=== PATIENT | male | born 1970 | race Caucasian/White ===

== ENCOUNTER 2021-06-16 19:39 | Emergency (ER) | payer BC, SELFPAY ==
[2021-06-16 19:45] VITALS: BP 128/73; PULSE 84; RESP 18; TEMP 36.9; O2SAT 95; BMI 30.7
[2021-06-16 20:28] VITALS: BP 141/74; PULSE 72; RESP 18; TEMP 36.9; O2SAT 95
--- NOTE | 2021-06-16 20:30 | CTR_ITS ---
PROCEDURE INFORMATION: Exam: CT Cervical Spine Without Contrast Exam date and time: 06/16/2021 8:30 PM Age: 50 years old Clinical indication: Injury or trauma; Other: Blunt trauma; Patient HX: Patient struck on top of head by a moderate sized tree limb from approximately 5 to six feet high. Lac near vertex. C/O head and neck pain. ; Additional info: Struck in head by tree TECHNIQUE: Imaging protocol: Computed tomography images of the cervical spine without contrast. Radiation optimization: All CT scans at this facility use at least one of these dose optimization techniques: automated exposure control; mA and/or kV adjustment per patient size (includes targeted exams where dose is matched to clinical indication); or iterative reconstruction. COMPARISON: CT head wo con* [id number] 06/16/2021 8:38 PM RADIATION DOSE METRICS: Total DLP (mGy-cm): 705.66 FINDINGS: Vertebrae: There are mild degenerative changes present. Normal alignment. No acute fractures. Soft tissues: Unremarkable. Lungs: Lung apices are normal. CT/CT cervical spin wo con* [id number] IMPRESSION: No acute injury. Radiation Dose CTDIVOL = (mGy): DLP = 705.66 (mGy-cm)
--- NOTE | 2021-06-16 20:30 | CTR_ITS ---
PROCEDURE INFORMATION: Exam: CT Head Without Contrast Exam date and time: 06/16/2021 8:30 PM Age: 50 years old Clinical indication: Injury or trauma; Blunt trauma (contusions or hematomas); Patient HX: Patient struck on top of head by a moderate sized tree limb from approximately 5 to six feet high. Lac near vertex. C/O head and neck pain. ; Additional info: Struck in head by tree TECHNIQUE: Imaging protocol: Computed tomography of the head without contrast. Radiation optimization: All CT scans at this facility use at least one of these dose optimization techniques: automated exposure control; mA and/or kV adjustment per patient size (includes targeted exams where dose is matched to clinical indication); or iterative reconstruction. COMPARISON: CT head wo con* [id number] 08/28/2019 9:16 AM RADIATION DOSE METRICS: Total DLP (mGy-cm): 898.12 FINDINGS: Brain: Normal. No hemorrhage. Unremarkable white matter. No mass effect. Cerebral ventricles: No ventriculomegaly. Paranasal sinuses: Mucosal thickening in the ethmoid sinuses. Mastoid air cells: Visualized mastoid air cells are well aerated. Bones/joints: Unremarkable. No acute fracture. Soft tissues: There is an apical scalp laceration. CT/CT head wo con* [id number] IMPRESSION: No acute intracranial injury. Radiation Dose CTDIVOL = (mGy): DLP = 898.12 (mGy-cm)
--- NOTE | 2021-06-16 21:33 | ED_ITS ---
HPI - Head Injury General: Chief complaint: Head Injury Stated complaint: Injury\Head Time Seen by Provider: 06/16/21 20:10 History of Present Illness: HPI Narrative: 50-year-old male who presents after a large tree branch fell from a height and landed on top of his head. He had some scalp bleeding. He did not get knocked out. He has a mild headache. No vision changes. No weakness or trouble with speech. MD Complaint: head injury Onset (ago): hour(s) Mechanism of Injury: other Place: home Loss of Consciousness: no Location of injury: other Severity: moderate Quality: burning and sharp Radiation: none Other Injuries: none Associated symptoms: Deny confusion, nausea, syncope or vomiting Review of Systems Const: Denies: fever(s) Eyes: Denies: change in vision ENMT: Denies: throat pain or hoarseness Card: Denies: chest pain, palpitations, irregular heart rhythm, syncope or pre-syncope Resp: Denies: dyspnea or non-productive cough GI: Denies: abdominal pain, nausea or vomiting Neuro: Reports: headache(s); Denies: numbness in extremities, weakness in extremities or confusion Physical Exam Const: COMMON NORMALS: no acute distress, patient oriented x3 and alert GENERAL APPEARANCE: cooperative HENMT: COMMON NORMALS: external ears normal and Normal external nose present HEAD & SCALP: scalp lesion (Abrasion to crown. Minimal swelling. No bleeding.) FACE & SINUS: normal facial exam NOSE: Normal external nose present EXTERNAL EAR: Yes external ears normal MOUTH: Normal oral and palatal mucosa present and tongue normal Neck/C-Spine: GENERAL: Yes trachea midline and No tender Chest: COMMONS NORMALS: normal inspection of the chest CHEST: No tenderness Resp: COMMON NORMALS: normal respiratory effort and No use of accessory muscles Cardio: COMMON NORMALS: regular rate and regular rhythm RATE: regular rate RHYTHM: regular rhythm GI: COMMON NORMALS: Normal to inspection, nondistended, normoactive bowel sounds present : COMMON NORMALS: Yes no CVA tenderness BLADDER/KIDNEY EXAM: Yes no CVA tenderness Back/Pelvis: COMMON NORMALS: no CVA tenderness, thoracic and lumbar spine normal to inspection and no thoracic nor lumbar tenderness Neuro: COMMON NORMALS: patient oriented x3 SENSORIUM/ORIENTATION: Yes alert Course Vital Signs: Vital signs: Vital Signs Temperature 98.4 F 06/16/21 21:43 Pulse Rate 72 09/24/21 21:43 Respiratory Rate 18 06/16/21 21:43 Blood Pressure 141/74 06/16/21 21:43 Pulse Oximetry 95 06/16/21 21:43 MDM - Head Injury MDM Narrative: Medical decision making narrative: Head and C-spine CTs are negative Discharge Plan Discharge Patient Disposition: Home Clinical Impression: Contusion of scalp Qualifiers: Encounter type: initial encounter Qualified Code(s): S00.03XA - Contusion of scalp, initial encounter Abrasion of scalp Qualifiers: Encounter type: initial encounter Qualified Code(s): S00.01XA - Abrasion of scalp, initial encounter Condition: Stable Prescriptions: No Action No Known Home Medications RF: 0 Discharge Orders: Discharge ED (Routine); Ordered 06/16/21 Ordered By: Jesse Rosa Discharge Diet: Usual diet Discharge Activity: Limit activity as instructed Patient Instructions: Abrasion (ED), Scalp Contusion in Adults (ED) Activity Restrictions/Additional Instructions: You may wash with soap and running water. Do not scrub. Return for mental status changes, worsening headache, vision changes, weakness, trouble with speech, any other concerning symptoms Stand Alone Forms: Work/School Release Coding Level of Care Code ED Composition Stone Applicator for Anmol Fwd Exam Expanded Problem Focused
[2021-06-16 21:43] VITALS: BP 141/74; PULSE 72; RESP 18; TEMP 36.9; O2SAT 95
== END 2021-06-16 21:42 | disposition home or self-care (01) ==
PROVIDERS: Emergency Provider Emergency Medicine
DX: S00.03XA Contusion of scalp, initial encounter (principal); S00.01XA Abrasion of scalp, initial encounter; W20.8XXA Other cause of strike by thrown, projected or falling object, initial encounter
CPT/HCPCS: 70450; 72125; 99282

== ENCOUNTER 2022-01-17 14:04 | Emergency (ER) | payer BC, SELFPAY ==
[2022-01-17] VITALS (21 sets, daily range): BP systolic 110–144; BP diastolic 69–91; PULSE 54–77; RESP 13–24; TEMP 36.7; O2SAT 91–97
--- NOTE | 2022-01-17 14:07 | XR_ITS ---
WS: [id number] Portable AP upright chest, 01/17/2022 Clinical Data: chest pain Comparison: None. Findings: No nodules, masses or effusions are seen. The heart is normal. The pulmonary vascularity is not increased. No pneumonia or pneumothorax is seen. XR/XR chest 1V portable [id number] Impression: Negative chest.
--- NOTE | 2022-01-17 14:08 | ECG_ITS ---
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 Measurements Intervals [place] Rate: 64 P: 40 NV: 224 QRS: 16 QRSD: 125 T: 39 QT: 365 QTc: 377 Interpretive Statements SINUS RHYTHM WITH FIRST DEGREE AV BLOCK POSSIBLE RIGHT VENTRICULAR CONDUCTION DELAY [RSR (QR) IN V1/V2] Consider TYPE 3 BRUGADA PATTERN (NON-DIAGNOSTIC) [COVED/SADDLEBACK ST ELEVATION > 0.1mV IN 2 OF V1-3] No previous ECG available for comparison Electronically Signed On 01-17-2022 16:56:40 CDT by Kit Alamo M.D. [id number]
[2022-01-17 14:43] LABS: Basophils % 0.4 %; Eosinophils # 0.1 10^3/uL (0.0-0.8); Eosinophils % 0.8 %; Hematocrit 46.2 % (42.0-52.0); Hemoglobin 15.9 g/dL (11.7-16.6); Lymphocytes # 1.3 10^3/uL (0.8-4.8); Lymphocytes % 13.2 %; Mean Corpuscular HGB Conc 34.4 g/dL (30.0-36.0); Mean Corpuscular Hemoglobin 31.4 pg (28.0-34.0); Mean Corpuscular Volume 91.3 fl (80-94); Mean Platelet Volume 9.2 fL (7.4-10.4); Monocytes # 0.9 10^3/uL (0.2-0.9); Monocytes % 9.2 %; Neutrophils # 7.68 10^3/uL (1.8-7.7); Neutrophils % 75.9 %; Nucleated Red Blood Cells % 0 %; Platelet Count 390 10^3/cmm (130-400); Red Blood Count 5.06 10^6/uL (4.1-5.3); Red Cell Distribution Width 13.1 % (12.1-15.1); White Blood Count 10.1 10^3/uL (4.0-10.0)
[2022-01-17 15:09] LABS: Blood Urea Nitrogen 9 mg/dL (6-20); Calcium 8.9 mg/dL (8.5-10.5); Carbon Dioxide 24 mmol/L (22-29); Chloride 102 mmol/L (98-107); Glucose 190 mg/dL (65-115); Osmolality Calculated 288 mOsm/kg (285-295); Sodium 137 mmol/L (136-145)
[2022-01-17 15:10] LABS: Troponin(5th) Baseline 6 ng/L (0-15)
[2022-01-17 15:15] LABS: Anion Gap 15.4 (5-19); Potassium 4.4 mmol/L (3.5-5.1)
--- NOTE | 2022-01-17 15:24 | US_ITS ---
WS: [id number] RIGHT UPPER QUADRANT ULTRASOUND HISTORY: RIGHT upper quadrant pain. Evaluate pathology. COMPARISON: 12/31/2009 Liver: 15.8 cm in length. Normal size liver. Moderate coarse echotexture. Surface of the liver is sli ghtly irregular. Central bile duct dilatation. Portal Vein: Normal hepatopetal flow with monophasic waveform. Gallbladder: Mild gallbladder hydrops with diffuse wall thickening. Wall measures up to 7 mm. There i s a small amount of sludge in the gallbladder. No cholelithiasis. Cannot exclude stones in the gallbl adder neck. There is very mild central bile duct dilatation. CBD: 0.7 cm Pancreas: Completely obscured by bowel gas and body habitus. Right kidney: 10.1 cm in length. Normal size and echogenicity. No hydronephrosis or mass. Aorta and IVC: Unremarkable abdominal aorta and IVC. No ascites. US/US gall bladder [id number] IMPRESSION: 1. Gallbladder hydrops with sludge. No stones identified. There may be a stone in the gallbladder neck as this area is not well visualized. There is diffuse wall thickening but no edema. Gallbladder findings may be related to hepatocell ular disease and not acute cholecystitis. Both remain in the differential at th is time. 2. Central bile duct dilatation. Recommend further evaluation of the common bi le duct. CT abdomen and pelvis with IV contrast. MRCP may also be necessary to evaluate the duct for distal stone. 3. Pancreas is not well visualized. Pancreatic head mass should be excluded by CT.
--- NOTE | 2022-01-17 15:26 | ED_ITS ---
HPI - General Adult General: Chief complaint: Abdominal Pain Stated complaint: Pain moving around from back to chest Time Seen by Provider: 01/17/22 14:20 History of Present Illness: Patient is a 51-year-old male with history of biliary colic presenting to the emergency room for evaluation of significant right upper quadrant pain for last 3 weeks. Patient tells me that he has had c hronic gallbladder problem for the last 12 years and acutely worsened in the last 3 weeks. Patient tells me that for last 3 weeks he has has had decreased p.o. intake with significant pain from the right upper quadrant into the chest and abdomen. Patient denies any fever or chills, urinary symptoms, renal colic, hematuria, or complaints. Denies any diarrhea melena hematochezia, prior abdominal surgery. She has no chest pain, shortness of breath, palpitation, cough, runny nose, sore throat. Onset:3 weeks ago Duration:3 weeks Location:home Severity:moderate Associated symptoms: Deny chest pain, dyspnea, nausea, rash, palpitations or vomiting Review of Systems Const: Denies: fever(s) or chills Eyes: Denies: change in vision ENMT: Denies: mouth pain Card: Denies: chest pain or palpitations Resp: Denies: dyspnea or non-productive cough GI: Reports: abdominal pain; Denies: nausea, vomiting or diarrhea : Denies: dysuria Musc: Denies: extremity pain Skin/Breast: Denies: rash or new lesions Neuro: Denies: weakness in extremities Psych: Reports: other (Normal mood) Jair/Lymph: Denies: easy bruising PFS ED PFSH: Medical History (Updated 01/17/22 @ 15:29 by Florian Galan MD) Biliary colic Social History (Updated 01/17/22 @ 15:29 by Florian Galan MD) Smoking and tobacco status: never smoked Alcohol intake: never Substance/Drug Use: never Physical Exam Const: COMMON NORMALS: alert HENMT: COMMON NORMALS: atraumatic HEAD & SCALP: atraumatic MOUTH: moist mucous membranes not abnormal Eye: COMMON NORMALS: EOMs intact bilaterally and conjunctivae normal CONJUNCTIVA: Yes conjunctivae normal Neck/C-Spine: COMMON NORMALS: full ROM and supple Resp: COMMON NORMALS: normal respiratory effort and clear to auscultation bilaterally AUSCULTATION: clear to auscultation bilaterally Cardio: COMMON NORMALS: regular rate RATE: regular rate GI: COMMON NORMALS: Soft to palpation PALPATION: Yes Soft to palpation OTHER: + Moderate right upper quadrant tenderness palpation. NO guarding rebound, guarding, rigidity. No CVA tenderness to percussion. +Caban/Neg McBurney's poin t tenderness, no suprabupic tenderness to palpation. Extremity: COMMON NORMALS: full ROM Neuro: SENSORIUM/ORIENTATION: Yes alert MOTOR EXAM: No Abnormal motor strength present and Other motor observations present (no focal motor deficits) Psych: COMMON NORMALS: speech normal SPEECH: Yes normal speech MOOD & AFFECT: Yes euthymic mood Course Vital Signs: Vital signs: Vital Signs Temperature 98.1 F 01/17/22 14:11 Pulse Rate 63 01/17/22 21:30 Respiratory Rate 22 H 01/17/22 21:30 Blood Pressure 125/72 01/17/22 21:30 Pulse Oximetry 93 01/17/22 21:30 MDM - General Adult Medical Decision Making 51-year-old male presenting to emergency room with complaints of right upper quadrant abdominal pain x3 weeks now worsening. On exam, patient has positive Caban sign. She is afebrile. No guarding or rebound tenderness. White count of 10.1. Ultrasound showed bladder wall thickening and CBD dilatation. CT of the pelvis showed CBD of 11 mm. AST/ALT/T bili appears to be elevated. No CBD observed. However, CT scan and ultrasound cannot rule possibly acute cholecystitis. Given the fact that we do not have a general surgeon in our hospital in case this is acute cholecystitis, decision was made to transfer patient for further evaluation. Case was discussed with Dr. Gómez who agreed with the transfer to [facility] for further evaluation of symptoms and possible GI/general surgery intervention. Disposition: Transfer to outside hospital Lab Data : 01/17/22 14:37 01/17/22 19:01 Radiology Impressions Chest X-Ray 01/17/22 14:07 Impression: Negative chest. Gallbladder Ultrasound 01/17/22 15:24 IMPRESSION: 1. Gallbladder hydrops with sludge. No stones identified. There may be a stone in the gallbladder neck as this area is not well visualized. There is diffuse wa ll thickening but no edema. Gallbladder findings may be related to hepatocellular disease and not acute cholecystitis. Both remain in the differential at this time. 2. Central bile duct dilatation. Recommend further evaluation of the common bile duct. CT abdomen and pelvis with IV contrast. MRCP may also be necessary to evaluate the duct for distal stone. 3. Pancreas is not well visualized. Pancreatic head mass should be excluded by CT. Abdomen/Pelvis CT 01/17/22 16:33 IMPRESSION: Common bile duct dilated to 11 mm along with intrahepatic biliary dilation, negative for obstructive lesion seen by CT, MRCP could further evaluate this. Gallbladder also demonstrates some wall thickening, please correlate for possible cholecystitis. Laboratory Results WBC 10.1 10^3/uL (4.0-10.0) H 01/17/22 14:37 RBC 5.06 10^6/uL (4.1-5.3) 01/17/22 14:37 Hgb 15.9 g/dL (11.7-16.6) 01/17/22 14:37 Hct 46.2 % (42.0-52.0) 01/17/22 14:37 MCV 91.3 fl (80-94) 01/17/22 14:37 MCH 31.4 pg (28.0-34.0) 01/17/22 14:37 MCHC 34.4 g/dL (30.0-36.0) 01/17/22 14:37 RDW 13.1 % (12.1-15.1) 01/17/22 14:37 Plt Count 390 10^3/cmm (130-400) 01/17/22 14:37 MPV 9.2 fL (7.4-10.4) 01/17/22 14:37 Neut % (Auto) 75.9 % 01/17/22 14:37 Lymph % (Auto) 13.2 % 01/17/22 14:37 [place] % (Auto) 9.2 % 01/17/22 14:37 Eos % (Auto) 0.8 % 01/17/22 14:37 Baso % (Auto) 0.4 % 01/17/22 14:37 Neut # (Auto) 7.68 10^3/uL (1.8-7.7) 01/17/22 14:37 Lymph # (Auto) 1.3 10^3/uL (0.8-4.8) 01/17/22 14:37 [place]estone # (Auto) 0.9 10^3/uL (0.2-0.9) 01/17/22 14:37 Eos # (Auto) 0.1 10^3/uL (0.0-0.8) 01/17/22 14:37 Baso # (Auto) 0.0 10^3/uL (0.0-0.1) 01/17/22 14:37 Nucleated RBC % (auto) 0 % 01/17/22 14:37 Nucleated RBCs # 0.0 /100WBC 01/17/22 14:37 Sodium 138 mmol/L (136-145) 01/17/22 19:01 Potassium 4.6 mmol/L (3.5-5.1) 01/17/22 19:01 Chloride 103 mmol/L (98-107) 01/17/22 19:01 Carbon Dioxide 26 mmol/L (22-29) 01/17/22 19:01 Anion Gap 13.6 (5-19) 01/17/22 19:01 BUN 8 mg/dL (6-20) 01/17/22 19:01 Creatinine 0.9 mg/dL (0.7-1.2) 01/17/22 19:01 GFR Calculation 89.0 mL/min (90-130) L 01/17/22 19:01 Glucose 110 mg/dL (65-115) 01/17/22 19:01 Calculated Osmolality 285 mOsm/kg (285-295) 01/17/22 19:01 Calcium 9.2 mg/dL (8.5-10.5) 01/17/22 19:01 Total Bilirubin 2.7 mg/dL (0.15-1.2) H 01/17/22 19:01 Direct Bilirubin 2.40 mg/dL (0.00-0.30) H 01/17/22 19:01 Indirect Bilirubin 0.30 01/17/22 19:01 AST 571 U/L (0-40) H 01/17/22 19:01 ALT 619 U/L (0-41) H 01/17/22 19:01 Alkaline Phosphatase 298 IU/L (40-130) H 01/17/22 19:01 Troponin T Baseline 6 ng/L (0-15) 01/17/22 14:37 Total Protein 7.6 g/dL (6.6-8.7) 01/17/22 19:01 Albumin 3.8 g/dL (3.5-5.2) 01/17/22 19:01 Globulin 3.8 g/dL (1.3-4.6) 01/17/22 19:01 Urine Color Yellow (Yellow) 01/17/22 19:32 Urine Appearance Clear (CLEAR) 01/17/22 19:32 Urine pH 7 (5-7) 01/17/22 19:32 Ur Specific Green 1.010 (1.005-1.030) 01/17/22 19:32 Urine Protein Neg (Negative) 01/17/22 19:32 Urine Glucose (UA) Norm (Normal) 01/17/22 19:32 Urine Ketones Negative (Negative) 01/17/22 19:32 Urine Blood Neg (Negative) 01/17/22 19:32 Urine Nitrate Negative (Negative) 01/17/22 19:32 Urine Bilirubin 1+ (Negative) H 01/17/22 19:32 Urine Urobilinogen Neg mg/dL (Negative) 01/17/22 19:32 Ur Leukocyte Esterase Negative (Negative) 01/17/22 19:32 Imaging Data Other Imaging: Radiologist's impression: [place] [address] CT Scan Report Signed Patient: Edson Jurado Unit #: [id number] : 1970 Age/Sex: 51 / M ADM Date: 01/17/22 Loc: ER Room/Bed: Attending Dr: Ordering Provider/Ordering MD: Florian Galan MD Date of Service: 01/17/22 Procedure(s): CT abdomen pelvis w con* [id number] Accession Number(s): [id number] Report Number: [id number] PROCEDURE INFORMATION: Exam: CT Abdomen And Pelvis With Contrast Exam date and time: 01/17/2022 5:47 PM Age: 51 years old Clinical indication: Abdominal pain; Additional info: Cbd dilitation TECHNIQUE: Imaging protocol: Computed tomography of the abdomen and pelvis with contrast. Radiation optimization: All CT scans at this facility use at least one of these dose optimization techniques: automated exposure control; mA and/or kV adjustment per patient size (includes targeted exams where dose is matched to clinical indication); or iterative reconstruction. Contrast material: OMNIPAQUE 350; Contrast volume: 95 ml; Contrast route: INTRAVENOUS (IV);? COMPARISON: US gall bladder [id number] 01/17/2022 3:54 PM RADIATION DOSE METRICS: Total DLP (mGy-cm): 1796.37 FINDINGS: Lungs: Left lower lobe calcified granuloma. Liver: Normal. No mass. Gallbladder and bile ducts: Common bile duct dilated to 11 mm along with intrahepatic biliary dilation, negative for obstructive lesion seen by CT, MRCP could further evaluate this.? Gallbladder also demonstrates some wall thickening, please correlate for possible cholecystitis. Pancreas: Normal. No ductal dilation. Spleen: Normal. No splenomegaly. Adrenal glands: Normal. No mass. Kidneys and ureters: Normal. No hydronephrosis. Stomach and bowel: Unremarkable. No obstruction. No mucosal thickening. Appendix: No evidence of appendicitis. Intraperitoneal space: Unremarkable. No free air. No significant fluid collection. Arteries: Unremarkable. No abdominal aortic aneurysm. Lymph nodes: Unremarkable. No enlarged lymph nodes. Urinary bladder: Unremarkable as visualized. Reproductive: Unremarkable as visualized. Bones/joints: Unremarkable. No acute fracture. Soft tissues: Unremarkable. CT/CT abdomen pelvis w con* [id number] IMPRESSION: Common bile duct dilated to 11 mm along with intrahepatic biliary dilation, negative for obstructive lesion seen by CT, MRCP could further evaluate this. Gallbladder also demonstrates some wall thickening, please correlate for possible cholecystitis. ? Dictated By: Andrew Hurt MD Signed By: Andrew Hurt MD Signed Date/Time: 01/17/22 180 DD/ [address] [address] Ultrasound Report Signed Patient: Edson Jurado Unit #: [id number] : 1970 Age/Sex: 51 / M ADM Date: 01/17/22 Loc: ER Room/Bed: Attending Dr: Ordering Provider/Ordering MD: Florian Galan MD Date of Service: 01/17/22 Procedure(s): US gall bladder [id number] Accession Number(s): [id number] Report Number: [id number] WS: [id number] RIGHT UPPER QUADRANT ULTRASOUND HISTORY: RIGHT upper quadrant pain. Evaluate pathology. COMPARISON: 12/31/2009 Liver: 15.8 cm in length. Normal size liver. Moderate coarse echotexture. Surface of the liver is slightly irregular. Central bile duct dilatation. Portal Vein: Normal hepatopetal flow with monophasic waveform. Gallbladder: Mild gallbladder hydrops with diffuse wall thickening. Wall measures up to 7 mm. There is a small amount of sludge in the gallbladder. No cholelithiasis. Cannot exclude stones in the gallbladder neck. There is very mild central bile duct dilatation. CBD: 0.7 cm Pancreas: Completely obscured by bowel gas and body habitus. Right kidney: 10.1 cm in length. Normal size and echogenicity. No hydronephrosis or mass. Aorta and IVC: Unremarkable abdominal aorta and IVC. No ascites. US/US gall bladder [id number] IMPRESSION: ? 1.? Gallbladder hydrops with sludge. No stones identified. There may be a stone in the gallbladder neck as this area is not well visualized. There is diffuse wall thickening but no edema. Gallbladder findings may be related to hepatocellular disease and not acute cholecystitis. Both remain in the differential at this time. 2.? Central bile duct dilatation. Recommend further evaluation of the common bile duct. CT abdomen and pelvis with IV contrast. MRCP may also be necessary to evaluate the duct for distal stone. 3.? Pancreas is not well visualized. Pancreatic head mass should be excluded by CT. ? Dictated By: Cleo Gandhi DO Signed By: Cleo Gandhi DO Signed Date/Time: 01/17/22 1620 DD/ 1615 Discharge Plan Discharge Condition: Stable Prescriptions: No Action No Known Home Medications 0RF Coding Level of Care Code ED Combine Driver for Chg Fwd Exam Comprehensive
[2022-01-17] MEDS: morphine 4 mg/mL SDV 1 mL IVP ×2 (15:33→19:56)
[2022-01-17] MEDS: sodium chloride 0.9% 1,000 ML 999 ML IV (15:33)
[2022-01-17] MEDS: ondansetron 2 mg/ML SDV 2 mL 4 MG IVP (15:34)
[2022-01-17] MEDS: famotidine 20 mg/2 mL INJ IVP (15:34)
--- NOTE | 2022-01-17 16:08 | ECG_ITS ---
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 Measurements Intervals [place] Rate: 58 P: 36 KS: 235 QRS: 12 QRSD: 124 T: 35 QT: 380 QTc: 375 Interpretive Statements SINUS BRADYCARDIA WITH FIRST DEGREE AV BLOCK POSSIBLE RIGHT VENTRICULAR CONDUCTION DELAY [RSR (QR) IN V1/V2] Compared to ECG 01/17/2022 14:29:31 Sinus rhythm no longer present ST (T wave) deviation no longer present Electronically Signed On 01-17-2022 17:06:16 CDT by Kit Alamo M.D. [id number]
--- NOTE | 2022-01-17 16:33 | CTR_ITS ---
PROCEDURE INFORMATION: Exam: CT Abdomen And Pelvis With Contrast Exam date and time: 01/17/2022 5:47 PM Age: 51 years old Clinical indication: Abdominal pain; Additional info: Cbd dilitation TECHNIQUE: Imaging protocol: Computed tomography of the abdomen and pelvis with contrast. Radiation optimization: All CT scans at this facility use at least one of these dose optimization techniques: automated exposure control; mA and/or kV adjustment per patient size (includes targeted exams where dose is matched to clinical indication); or iterative reconstruction. Contrast material: OMNIPAQUE 350; Contrast volume: 95 ml; Contrast route: INTRAVENOUS (IV); COMPARISON: US gall bladder [id number] 01/17/2022 3:54 PM RADIATION DOSE METRICS: Total DLP (mGy-cm): 1796.37 FINDINGS: Lungs: Left lower lobe calcified granuloma. Liver: Normal. No mass. Gallbladder and bile ducts: Common bile duct dilated to 11 mm along with intrahepatic biliary dilation, negative for obstructive lesion seen by CT, MRCP could further evaluate this. Gallbladder also demonstrates some wall thickening, please correlate for possible cholecystitis. Pancreas: Normal. No ductal dilation. Spleen: Normal. No splenomegaly. Adrenal glands: Normal. No mass. Kidneys and ureters: Normal. No hydronephrosis. Stomach and bowel: Unremarkable. No obstruction. No mucosal thickening. Appendix: No evidence of appendicitis. Intraperitoneal space: Unremarkable. No free air. No significant fluid collection. Arteries: Unremarkable. No abdominal aortic aneurysm. Lymph nodes: Unremarkable. No enlarged lymph nodes. Urinary bladder: Unremarkable as visualized. Reproductive: Unremarkable as visualized. Bones/joints: Unremarkable. No acute fracture. Soft tissues: Unremarkable. CT/CT abdomen pelvis w con* [id number] IMPRESSION: Common bile duct dilated to 11 mm along with intrahepatic biliary dilation, negative for obstructive lesion seen by CT, MRCP could further evaluate this. Gallbladder also demonstrates some wall thickening, please correlate for possible cholecystitis.
[2022-01-17] MEDS: iohexol 350 mg/mL 100 mL Btl IV (17:48)
--- NOTE | 2022-01-17 19:13 | PC.NURSE ---
190 Assumed pt care from Lan AYALA
[2022-01-17 19:28] LABS: Alanine Aminotransferase 619 U/L (0-41); Albumin Level 3.8 g/dL (3.5-5.2); Alkaline Phosphatase 298 IU/L (40-130); Anion Gap 13.6 (5-19); Aspartate Amino Transferase 571 U/L (0-40); Blood Urea Nitrogen 8 mg/dL (6-20); Calcium 9.2 mg/dL (8.5-10.5); Carbon Dioxide 26 mmol/L (22-29); Chloride 103 mmol/L (98-107); Globulin 3.8 g/dL (1.3-4.6); Glucose 110 mg/dL (65-115); Osmolality Calculated 285 mOsm/kg (285-295); Potassium 4.6 mmol/L (3.5-5.1); Sodium 138 mmol/L (136-145); Total Bilirubin 2.7 mg/dL (0.15-1.2); Total Protein 7.6 g/dL (6.6-8.7)
[2022-01-17 19:40] LABS: Add Urine Microscopic? NO; Charge for UA Resulting for Rev
[2022-01-17 19:44] LABS: Bilirubin Urine 1+ (Negative); Blood Urine Neg (Negative); Glucose Urine UA Norm (Normal); Ketones Urine Negative (Negative); Leukocyte Esterase Urine Negative (Negative); Nitrate Urine Negative (Negative); Protein Urine Neg (Negative); Urine Appearance Clear (CLEAR); Urine Color Yellow (Yellow); Urobilinogen Urine Neg (Negative); pH Urine 7 (5-7)
--- NOTE | 2022-01-17 20:08 | ECG_ITS ---
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 Measurements Intervals [place] Rate: 70 P: 42 NC: 208 QRS: 42 QRSD: 105 T: 53 QT: 369 QTc: 399 Interpretive Statements SINUS RHYTHM INCOMPLETE RIGHT BUNDLE BRANCH BLOCK [90+ ms QRS DURATION, TERMINAL R IN V1/V2, 40+ ms S IN I/aVL/V4/V5/V6] TYPE 3 BRUGADA PATTERN (NON-DIAGNOSTIC) [COVED/SADDLEBACK ST ELEVATION > 0.1mV IN 2 OF V1-3] Compared to ECG 01/17/2022 16:18:37 Incomplete right bundle-branch block now present ST (T wave) deviation now present Sinus bradycardia no longer present First degree AV block no longer present Electronically Signed On 01-18-2022 17:02:48 CDT by Dusty Fuentes M.D. [id number]
[2022-01-17] MEDS: fentaNYL 50 mcg/mL INJ 2mL IVP (23:44)
[2022-01-18 00:18] VITALS: BP 124/73; PULSE 65; RESP 20; O2SAT 93
[2022-01-18 00:48] VITALS: BP 119/68; PULSE 68; RESP 21; O2SAT 93
[2022-01-18 01:18] VITALS: BP 130/73; PULSE 69; RESP 24; O2SAT 93
[2022-01-18 02:20] VITALS: BP 129/81; PULSE 68; RESP 18; O2SAT 93
== END 2022-01-18 01:48 ==
PROVIDERS: Emergency Provider Emergency Medicine
DX: K83.8 Other specified diseases of biliary tract (principal); K82.9 Disease of gallbladder, unspecified
CPT/HCPCS: 71045; 74177; 76705; 80048; 80053; 81003; 82247; 82248; 84484; 85025; 93005; 96361; 96374; 96375; 96376; 99285; J2270; J2405; J3010; J3490; J7030; Q9967

== ENCOUNTER 2022-12-02 00:30 | Emergency (ER) | payer BC, SELFPAY ==
--- NOTE | 2022-12-02 00:32 | XRR_ITS ---
PROCEDURE INFORMATION: Exam: XR Chest Exam date and time: 12/02/2022 1:34 AM Age: 52 years old Clinical indication: Cough; Additional info: Cough, body aches TECHNIQUE: Imaging protocol: Radiologic exam of the chest. Views: 1 view. COMPARISON: CR XR chest 1V portable [id number] 01/17/2022 2:23 PM FINDINGS: Lungs: Normal lung volumes. No interstitial or airspace opacities. Pleural spaces: No pleural effusion. No pneumothorax. Heart/Mediastinum: Normal heart size. Normal mediastinal contour. Midline trachea. Bones/joints: No acute abnormalities. XR/XR chest 1V portable [id number] IMPRESSION: No chest radiographic evidence of acute cardiopulmonary disease.
[2022-12-02 00:40] VITALS: BP 142/88; PULSE 64; RESP 16; TEMP 36.7; O2SAT 96; BMI 29.6
--- NOTE | 2022-12-02 01:01 | ED_ITS ---
HPI - URI/Sore Throat General: Chief Complaint: Abdominal Pain Stated Complaint: cough,chills, flu like symtoms Time Seen by Provider: 12/02/22 00:33 Source: patient Mode of arrival: ambulatory Limitations: no limitations History of Present Illness: Patient is a 52-year-old male who presents to the ED today with a complaint of cough over the past 3 weeks. Patient states he is coughing up green phlegm. He denies chest pain, shortness of breath, difficulty breathing. No hemoptysis. Patient is an everyday smoker. He states he is coughing so much that he now has pain to his left groin region. Patient states he does not have pain to the groin unless he coughs. He is stooling and passing flatulence normally. MD elicited complaint: cough Onset (ago): week(s) Severity: moderate Description of mucous: green Exacerbating factors: other (coughing) Relieving factors: nothing Associated symptoms: Deny abdominal pain, chills, chest pain, diarrhea, fever(s), headache(s), nasal congestion, nausea or vomiting Treatments prior to arrival: none Review of Systems Const: Denies: fever(s), chills, body aches, fatigue or malaise ENMT: Denies: throat pain, odynophagia, nasal discharge or nasal congestion Card: Denies: chest pain, palpitations, irregular heart rhythm, edema, swelling of feet/ankles, lightheadedness, syncope or pre-syncope Resp: Reports: productive cough, change in phlegm color and chest congestion; Denies: dyspnea, wheezing or hemoptysis GI: Denies: abdominal pain, nausea, vomiting or diarrhea Musc: Denies: neck pain, back pain, extremity pain or joint pain Skin/Breast: Denies: rash Neuro: Denies: headache(s) or dizziness PFS ED PFSH: Surgical History History of cholecystectomy Social History Smoking and tobacco status: former smoker Alcohol intake: never Physical Exam Const: COMMON NORMALS: no acute distress, average body habitus, patient orie nted x3, no limitations, healthy appearing, alert and well nourished GENERAL APPEARANCE: cooperative ORIENTATION/CONSCIOUSNESS: Yes awake, Yes oriented to person, Yes oriented to place and Yes oriented to time HENMT: COMMON NORMALS: normocephalic and atraumatic HEAD & SCALP: normal to inspection, normocephalic and atraumatic FACE & SINUS: normal facial exam Eye: SCLERA: sclerae normal Neck/C-Spine: COMMON NORMALS: full ROM, no lymphadenopathy and no meningeal signs Resp: COMMON NORMALS: normal respiratory effort and clear to auscultation bilaterally AUSCULTATION: clear to auscultation bilaterally Cardio: COMMON NORMALS: regular rate and regular rhythm RATE: regular rate RHYTHM: regular rhythm GI: COMMON NORMALS: Normal to inspection, nondistended, normoactive bowel sounds present, Soft to palpation, non-tender, No hepatosplenomegaly present and no masses INSPECTION: Yes normal to inspection and Yes other (L inguinal hernia appreciated during cough only) AUSCULTATION: Yes normoactive bowel sounds PALPATION: Yes Soft to palpation, Yes Tenderness to palpation present (GI), No Guarding due to palpation present (GI), No Rigid due to palpation and Yes No hepatosplenomegaly present OTHER: no incarceration/strangulation to hernia noted Extremity: COMMON NORMALS: normal to inspection GENERAL: Yes normal exam except as noted Neuro: CORY COMA SCALE: document GCS findings [place] coma scale eye opening: Spontaneous Cory coma scale verbal response: Orientated [place] coma scale motor response: Obey commands [place] coma scale total score: 15 COMMON NORMALS: patient oriented x3, moves all extremities, no focal motor deficits and no sensory deficits noted SENSORIUM/ORIENTATION: Yes alert, Yes oriented to person, Yes oriented to place and Yes oriented to time MENINGEAL SIGNS: Yes no meningeal signs Skin: COMMON NORMALS: no rashes or lesions noted GENERAL SKIN EXAM: no rashes or lesions noted Course Vital Signs: Vital signs: Vital Signs Temperature 98.1 F 12/02/22 00:40 Pulse Rate 64 12/02/22 00:40 Respiratory Rate 16 12/02/22 00:40 Blood Pressure 142/88 12/02/22 00:40 Pulse Oximetry 96 12/02/22 00:40 Oxygen Delivery Me thod 12/02/22 00:40 MDM - URI/Sore Throat Medical Decision Making Patient here with cough for 3 weeks. Patient states he has been coughing so much that he now has left groin pain. On exam he has a left inguinal hernia that is not incarcerated or strangulated. 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 I will go ahead and place a case management referral for general surgery for evaluation and discussion for elective repair. I will place him on antibiotics, steroids, albuterol inhaler for the bronchitis. Recommend he follow-up with primary care if symptoms do not seem to improve over the next week or so. Strict return to ED precautions given. Discharge Plan Discharge Patient Disposition: Home Clinical Impression: Bronchitis, Left inguinal hernia Condition: Stable Prescriptions: New prednisone 10 mg tablet 60 mg PO DAILY 5 Days Qty: 30 0RF doxycycline monohydrate 100 mg capsule 100 mg PO Q12H 10 Days Qty: 20 0RF albuterol sulfate 90 mcg/actuation aerosol powdr breath activated 2 inh INHALATION Q4H PRN (Reason: shortness of breath or wheezing) Qty: 1 0RF No Action acetaminophen [Tylenol Extra Strength] 500 mg tablet 1,000 mg PO QID PRN ciprofloxacin HCl 500 mg tablet 500 mg PO Q12H omeprazole 20 mg capsule,delayed release(DR/EC) 20 mg PO DAILY 90 Days Qty: 90 0RF Discharge Orders: Discharge ED (Routine); Ordered 12/02/22 Ordered By: Lucia Lorenzana Referrals: Temitope Lemons MD [Primary Care Provider] - Patient Instructions: Acute Bronchitis (ED), Inguinal Hernia (ED) Activity Restrictions/Additional Instructions: As we discussed I will put you on medications for the bronchitis. I have placed a referral with case management so they can get you set up with general surgery for evaluation of your hernia. You need to return to the emergency department if hernia becomes severely painful and constant in nature, if you are unable to pass gas or have a bowel movement, fevers, repetitive episodes of vomiting, or any other concerns you may have. 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
--- NOTE | 2022-12-03 09:53 | DCPLANNER ---
Addendum entered by Khushboo Cruz 01/02/23 09:19: Patient had a follow up appointment scheduled with general surgery - patient did attend appointment Addendum entered by Khushboo Cruz 12/03/22 14:33: Patient has a follow up appointment scheduled for Sunday, January 01, 2023 at 9:[address] Aguilera at general surgery. Clinic will call patient with appointment information. Original Note: training manager had message to schedule a follow up appointment for patient with general surger. training manager sent patients information to the front office staff at general surgery. Patients information will be printed and reviewed. Clinic will call patient with appointment information.
== END 2022-12-02 03:28 | disposition home or self-care (01) ==
PROVIDERS: Emergency Provider Physician Assistant; PCP Family Medicine
DX: J40 Bronchitis, not specified as acute or chronic (principal); K40.90 Unilateral inguinal hernia, without obstruction or gangrene, not specified as recurrent; Z87.891 Personal history of nicotine dependence
CPT/HCPCS: 71045; 99283

== ENCOUNTER → 2022-12-13 11:43 | Outpatient (BNVA) | payer BC, SELFPAY | PROVIDERS: PCP Family Medicine; Visit Provider Family Medicine | DX: Z13.1 Encounter for screening for diabetes mellitus (principal); R63.4 Abnormal weight loss; Z13.220 Encounter for screening for lipoid disorders; Z13.6 Encounter for screening for cardiovascular disorders; Z12.5 Encounter for screening for malignant neoplasm of prostate; M72.2 Plantar fascial fibromatosis; Z12.11 Encounter for screening for malignant neoplasm of colon; K40.90 Unilateral inguinal hernia, without obstruction or gangrene, not specified as recurrent; Z80.0 Family history of malignant neoplasm of digestive organs; R03.0 Elevated blood-pressure reading, without diagnosis of hypertension; R74.8 Abnormal levels of other serum enzymes; D49.2 Neoplasm of unspecified behavior of bone, soft tissue, and skin | CPT/HCPCS: 80053; 80061; 84443; 85025; G0103 ==

== ENCOUNTER 2023-01-24 06:52 | Day surgery (SDC) | payer BC, SELFPAY ==
[2023-01-22 10:41] VITALS: BMI 30.7
[2023-01-24 07:09] VITALS: BP 114/70; PULSE 61; RESP 16; TEMP 36.2; O2SAT 96
[2023-01-24] MEDS: sodium chloride 0.9% 1,000 ML 30 ML IV (07:18)
--- NOTE | 2023-01-24 08:14 | ANES.PREANE2 ---
Pre-Anesthetic Assessment Height/Weight: Height 1.73 m Weight 91.626 kg Temp Pulse Resp BP Pulse Ox O2 Del Method 97.1 F L 61 16 114/70 96 Room Air 01/24/23 07:09 01/24/23 07:09 01/24/23 07:09 01/24/23 07:09 01/24/23 07:09 01/24/23 07:09 Operation Date: 01/24/23 08:45 Proposed Procedures p 94235 colon Z12.11,KK59.00,K92.1(Not Applicable) - Orlando Aguilera DO Familial anesthetic complications: None Was Beta Terry taken within 24 hours: N/A Was Clonidine taken within 24 hours: N/A Last intake: Intake Last Liquid Date 01/23/23 Last Liquid Time 23:00 Last Solid Date 01/22/23 Last Solid Time 23:39 Social Tobacco and No alcohol Airway Mallampati: Class II Dentition: other (no teeth) Hepatic hx elevated LFTs GI Gastroesophageal Reflux Disease Anesthetic Plan ASA status: 2 Anesthesia: MAC Risk of > 500 ml blood loss (7ml/kg in children): No Medications/Allergies Home Medications Medication Instructions Recorded Confirmed Last Taken Type acetaminophen 500 mg tablet 1,000 mg PO QID PRN Pain 01/25/22 01/24/23 01/22/23 History (Tylenol Extra Strength) albuterol sulfate 90 mcg/actuation 2 inh inhalation Q4H PRN shortness 12/02/22 01/24/23 2 Weeks Ago Rx breath activated powder inhaler of breath or wheezing #1 ea ~01/10/23 omega 2-its-gce-fish oil 1,000 mg 1 cap PO BID 01/15/23 01/22/23 01/22/23 History (120 mg-180 mg) capsule (Fish Oil) Allergies Allergy/AdvReac Type Severity Reaction Status Date / Time acetaminophen [From Vicodin] Allergy ADR-Headach Verified 01/22/23 10:37 e hydrocodone [From Vicodin] Allergy ADR-Headach Verified 01/22/23 10:37 e Current Medications Generic Name Dose Route Start Last Admin Trade Name Freq PRN Reason Stop Dose Admin Sodium Chloride 1,000 mls @ 30 mls/hr 01/24/23 07:00 01/24/23 07:18 Sodium Chloride 0.9% IV 01/25/23 06:59 30 mls/hr .Q24H BRITTANY Administration PFSH Anesthesia Surgical History History of cholecystectomy History of tonsillectomy and adenoidectomy Family History Mother Cancer Diabetes Heart disease Father Alzheimer disease Diabetes Cancer Social History Smoking and tobacco status: current every day smoker cigarettes Alcohol intake: never Substance/Drug Use: never Data Anesthesia Cardiac Studies: No Data to Display
--- NOTE | 2023-01-24 08:20 | W.PM.OPSUD ---
Surgery/Procedure H&P Update DATE OF PROCEDURE: January 24, 2023 DATE H&P PERFORMED: 01/01/23 H&P UPDATE INFORMATION: I have reviewed H&P completed within last 30 days, I have examined patient prior to procedure and No changes to prior documentation PLANNED PROCEDURE: Operation Date: 01/24/23 08:45 Proposed Procedures p [id number] colon Z12.11,KK59.00,K92.1(Not Applicable) - Orlando Aguilera DO
[2023-01-24 09:13] VITALS: BP 105/65; PULSE 61; RESP 18; TEMP 36.1; O2SAT 92
[2023-01-24 09:27] VITALS: BP 117/68; PULSE 53; RESP 18; O2SAT 94
--- NOTE | 2023-01-24 13:44 | ANE.PACU2 ---
Inpatient post-anesthesia follow up: Airway intact: Yes Vital signs: Temperature 97.0 F Pulse Rate 53 Respiratory Rate 18 Blood Pressure 117/68 Pulse Oximetry 94 Oxygen Delivery Me thod Room Air Oxygen Flow Rate Fraction of Inspir ed Oxygen Hydration adequate: Yes Nausea and vomiting: No Pain level: 1 Mental status: Baseline
== END 2023-01-24 10:00 | disposition home or self-care (01) ==
PROVIDERS: PCP Family Medicine; Visit Provider Surgery
PROC: 0DJD8ZZ Inspection of Lower Intestinal Tract, Via Natural or Artificial Opening Endoscopic (ICD-10-PCS; CPT 45378; principal; 2023-01-24 08:45)
DX: Z12.11 Encounter for screening for malignant neoplasm of colon (principal); K57.30 Diverticulosis of large intestine without perforation or abscess without bleeding; K64.8 Other hemorrhoids; K59.00 Constipation, unspecified; K21.9 Gastro-esophageal reflux disease without esophagitis; F17.210 Nicotine dependence, cigarettes, uncomplicated
CPT/HCPCS: 45378; J2704; J7030

== ENCOUNTER 2023-01-31 05:19 | Day surgery (SDC) | payer BC, SELFPAY ==
[2023-01-30 11:32] VITALS: BMI 31.7
[2023-01-31] VITALS (9 sets, daily range): BP systolic 104–131; BP diastolic 65–83; PULSE 58–81; RESP 14–18; TEMP 36–36.3; O2SAT 90–98
[2023-01-31] MEDS: sodium chloride 0.9% 1,000 ML 30 ML IV (06:15)
--- NOTE | 2023-01-31 06:24 | W.PM.OPSUD ---
Surgery/Procedure H&P Update DATE OF PROCEDURE: January 31, 2023 DATE H&P PERFORMED: 01/01/23 H&P UPDATE INFORMATION: I have reviewed H&P completed within last 30 days, I have examined patient prior to procedure and No changes to prior documentation PLANNED PROCEDURE: Operation Date: 01/31/23 07:00 Proposed Procedures p [id number] lap left inguinal hernia repair with mesh & excision skin tag right groin K40.90,L91.8(Left) - Orlando Aguilera DO s excision skin tag right groin(Right) - Orlando Aguilera DO
[2023-01-31] MEDS: ceFAZolin 2,000 MG in sodium chloride 0.9% (plus) 50 ML 100 MG IV (07:00)
[2023-01-31] MEDS: lidocaine-epi 2% 20 mL INJ INJECTION (07:32)
--- NOTE | 2023-01-31 07:54 | ANES.PREANE2 ---
Pre-Anesthetic Assessment Height/Weight: Height 1.73 m Weight 94.801 kg Temp Pulse Resp BP Pulse Ox O2 Del Method 96.8 F L 58 L 16 118/71 95 Room Air 01/31/23 05:59 01/31/23 05:59 01/31/23 05:59 01/31/23 05:59 01/31/23 05:59 01/31/23 05:59 Operation Date: 01/31/23 07:00 Proposed Procedures p [id number] lap left inguinal hernia repair with mesh & excision skin tag right groin K40.90,L91.8(Left) - Orlando Aguilera DO s excision skin tag right groin(Right) - Orlando Aguilera DO Familial anesthetic complications: none Was Beta Terry taken within 24 hours: N/A Was Clonidine taken within 24 hours: N/A Last intake: Intake Last Liquid Date 01/30/23 Last Liquid Time 23:30 Last Solid Date 01/30/23 Last Solid Time 22:00 Social Tobacco and No alcohol Exam alert, oriented x 3 and regular rate & rhythm Airway Submandibular: within normal limits Cervical ROM: within normal limits Mallampati: Class II Dentition: false Pulmonary Chronic Obstructive Pulmonary Disease GI Gastroesophageal Reflux Disease Anesthetic Plan ASA status: 2 Anesthesia: General Medications/Allergies Home Medications Medication Instructions Recorded Confirmed Last Taken Type acetaminophen 500 mg tablet 1,000 mg PO QID PRN Pain 01/25/22 01/31/23 01/22/23 History (Tylenol Extra Strength) omega 0-apt-gkd-fish oil 1,000 mg 1 cap PO BID 01/15/23 01/30/23 01/30/23 History (120 mg-180 mg) capsule (Fish Oil) hydrocortisone 2.5 % topical cream 1 applic ND QID 10 days #30 grams 01/24/23 01/31/23 Unknown Rx with perineal applicator (Procto-Med HC) Allergies Allergy/AdvReac Type Severity Reaction Status Date / Time hydrocodone [From Vicodin] Allergy ADR-Headach Verified 01/22/23 10:37 e Current Medications Generic Name Dose Route Start Last Admin Trade Name Freq PRN Reason Stop Dose Admin Sodium Chloride 1,000 mls @ 30 mls/hr 01/31/23 06:00 01/31/23 06:15 Sodium Chloride 0.9% IV 05/12/23 05:59 30 mls/hr .Q24H BRITTANY Administration PFSH Anesthesia Surgical History History of cholecystectomy History of tonsillectomy and adenoidectomy Family History Mother Cancer Diabetes Heart disease Father Alzheimer disease Diabetes Cancer Social History Smoking and tobacco status: current every day smoker cigarettes Alcohol intake: never Substance/Drug Use: never Data Anesthesia Cardiac Studies: No Data to Display
--- NOTE | 2023-01-31 08:02 | P.OP_ITS ---
Operative Report Date of procedure: January 31, 2023 Pre-op diagnosis: Left inguinal hernia, right inguinal skin tag Post-op diagnosis: same Procedure done: Laparoscopic repair of left inguinal hernia with mesh Excision of right inguinal skin tag Implants: Large left 3D max Bard mesh Specimens removed/disposition: Right inguinal skin tag Surgeon: Dr. Orlando Aguilera DO Anesthesia: General Estimated blood loss (mL): 5 Complications: None apparent Brief History: This is a very pleasant 52-year-old gentleman who presented to my office with a left inguinal hernia and a right inguinal skin tag. He desired hernia repair and excision of skin tag. The risk and benefits were explained and documented. Procedure: Patient was wheeled into the operative room and placed on the OR table in a supine position. Abdomen was inspected prepped and draped in usual sterile fas hion. Time-out was performed and all present were in agreement. A 15 blade scalpel was used to make 1.2 centimeter incision infraumbilically. Combination of sharp and blunt dissection was performed down to the anterior rectus sheath which was opened sharply. The dissecting balloon was then inserted into the space of Retzius and blown up. We put the camera into the port and identified that we were in the correct space. I then placed 2 5 millimeter trocars suprapubically in the midline. I then used endokitners to bluntly dissect in the space of Retzius out laterally. A direct left inguinal hernia was identified. Blunt dissection was performed to dissect down the hernia sac until the vas deferens dove medially. A large left inguinal mesh was then placed into the space of Retzius. The mesh was unrolled and tacked once medially at the pubic bone. The mesh laid out nicely over the spermatic cord. I watched the hernia sac remained in place as insufflation was removed. Incisions were closed with 4-0 Monocryl in a subcuticular interrupted fashion. Skin glue was applied. Attention was then brought to the right groin, which was previously inspected prepped and draped in the usual sterile fashion. 2% lidocaine with epinephrine was used to localize around a large skin tag in the right groin. Metzenbaum scissors were then used to make an elliptical excision. Skin tag measured 5 cm x 5 cm. Bovie cautery was used for hemostasis. 4-0 Monocryl was then used to close the skin in an interrupted subcuticular fashion. Skin glue was applied. Patient tolerated the procedure well.
[2023-01-31] MEDS: oxyCODONE-APAP 5-325 mg Tablet 1 TAB PO (09:20)
--- NOTE | 2023-01-31 16:15 | ANE.PACU2 ---
Inpatient post-anesthesia follow up: Airway intact: Yes Vital signs: Temperature 97.4 F Pulse Rate 61 Respiratory Rate 18 Blood Pressure 124/65 Pulse Oximetry 91 Oxygen Delivery Me thod Room Air Oxygen Flow Rate 10 Fraction of Inspir ed Oxygen Hydration adequate: Yes Nausea and vomiting: No Pain level: 3 Mental status: Baseline
== END 2023-01-31 09:25 | disposition home or self-care (01) ==
PROVIDERS: PCP Family Medicine; Visit Provider Surgery
PROC: (CPT 49650; principal; 2023-01-31 07:00)
PROC: (CPT 11200; 2023-01-31 07:00)
DX: K40.90 Unilateral inguinal hernia, without obstruction or gangrene, not specified as recurrent (principal); L91.8 Other hypertrophic disorders of the skin; J44.9 Chronic obstructive pulmonary disease, unspecified; K21.9 Gastro-esophageal reflux disease without esophagitis; F17.210 Nicotine dependence, cigarettes, uncomplicated
CPT/HCPCS: 11200; 49650; 51702; 88304; C1781; J0690; J2250; J2370; J2405; J2704; J2710; J3010; J3490; J7030

== ENCOUNTER 2023-03-20 00:57 | Emergency (ER) | payer BC, SELFPAY ==
[2023-03-20 01:01] VITALS: BP 136/79; PULSE 72; RESP 16; TEMP 36.7; O2SAT 94; BMI 31.9
--- NOTE | 2023-03-20 01:01 | W.ED.PSYCHS ---
Documented by User: Ganesh Verdugo MD 03/31/23 19:49 HPI - Psych General: Chief Complaint: Psychiatric Symptoms Stated Complaint: 96 HOUR HOLD Time Seen by Provider: 03/20/23 00:58 History of Present Illness: Mr. Jurado is a 52-year-old gentleman presenting to the emergency department via law enforcement for court ordered 96-hour hold. He provides a significantly different history than his reported on the filed affidavit. He reports that him and his have been arguing as there is possible infidelity and other strains in that relationship. Apparently he went and spent all day or perhaps multiple day including overnight in the lobato to clear his mind and did not answer phone calls. He denies that he was contemplating suicide and denies homicidal ideation. He denies history of similar. Currently being treated for bronchitis. No other specific changes in health, exacerbating, or alleviating factors identified. Review of Systems General: Reports: 10 or more systems reviewed and unremarkable except in HPI and below PFSH ED PFSH: Surgical History History of cholecystectomy History of tonsillectomy and adenoidectomy Hx of inguinal hernia repair 01/31/23 LAP REPAIR OF LEFT INGUINAL HERNIA WITH MESH Family History Mother Cancer Diabetes Heart disease Father Alzheimer disease Diabetes Cancer Social History Smoking and tobacco status: current every day smoker cigarettes Alcohol intake: never Substance/Drug Use: never Physical Exam Const: COMMON NORMALS: alert GENERAL APPEARANCE: cooperative and well developed HENMT: COMMON NORMALS: normocephalic and atraumatic HEAD & SCALP: normocephalic and atraumatic Eye: COMMON NORMALS: conjunctivae normal CONJUNCTIVA: Yes conjunctivae normal SCLERA: sclerae normal Neck/C-Spine: COMMON NORMALS: supple GENERAL: Yes trachea midline Resp: COMMON NORMALS: clear to auscultation bilaterally EFFORT & INSPECTION: Yes able to speak in complete sentences AUSCULTATION: clear to auscultation bilaterally Cardio: COMMON NORMALS: regular rate and regular rhythm RATE: regular rate RHYTHM: regular rhythm GI: COMMON NORMALS: Soft to palpation PALPATION: Yes Soft to palpation and No Tenderness to palpation present (GI) Extremity: GENERAL: Yes normal exam except as noted and No edema Neuro: COMMON NORMALS: moves all extremities SENSORIUM/ORIENTATION: Yes alert and No Orientation impaired Psych: COMMON NORMALS: mental status grossly normal and Normal thought process present THOUGHT PROCESS: Normal thought process present Course Vital Signs: Vital signs: Vital Signs Temperature 98.0 F 03/20/23 01:01 Pulse Rate 66 03/20/23 14:00 Respiratory Rate 18 03/20/23 01:16 Blood Pressure 120/82 03/20/23 14:00 Pulse Oximetry 99 03/20/23 14:00 Oxygen Delivery Me thod Room Air 03/20/23 01:16 MDM - Psych Medical Decision Making 52-year-old gentleman presenting to the emergency department for court ordered 96-hour hold. Patient is calm and cooperative. No apparent evidence of self-harm and patient denies self-harm actions. Labs demonstrate no significant hematologic or metabolic abnormality. TSH is normal. Urine drug screen is [pending] and toxic ingestions are negative. Urinalysis is [pending]. COVID negative. Given physical exam and clinical history provided there is no indication for imaging at this time. Based on ED evaluation at this point there is no obvious condition that would preclude the patient from inpatient management of psychiatric concerns/symptoms. There is significant discrepancy between patient provided history and family submitted affidavit. As such we will plan to have psychiatry service evaluate the patient in the morning for further recommendations. Handed off to morning ED physician pending psychiatry service assessment and recommendations for disposition. Medical Records I reviewed the patient's medical records. Lab Data I reviewed the patient's lab results. 03/20/23 01:05 03/20/23 01:05 Laboratory Results WBC 13.3 10^3/uL (4.0-10.0) H 03/20/23 01:05 RBC 4.84 10^6/uL (4.1-5.3) 03/20/23 01:05 Hgb 15.2 g/dL (11.7-16.6) 03/20/23 01:05 Hct 44.6 % (42.0-52.0) 03/20/23 01:05 MCV 92.1 fl (80-94) 03/20/23 01:05 MCH 31.4 pg (28.0-34.0) 03/20/23 01:05 MCHC 34.1 g/dL (30.0-36.0) 03/20/23 01:05 RDW 13.8 % (12.1-15.1) 03/20/23 01:05 Plt Count 249 10^3/cmm (130-400) 03/20/23 01:05 MPV 9.7 fL (7.4-10.4) 03/20/23 01:05 Neut % (Auto) 64.9 % 03/20/23 01:05 Lymph % (Auto) 25.7 % 03/20/23 01:05 [place] % (Auto) 7.9 % 03/20/23 01:05 Eos % (Auto) 1.0 % 03/20/23 01:05 Baso % (Auto) 0.2 % 03/20/23 01:05 Neut # (Auto) 8.65 10^3/uL (1.8-7.7) H 03/20/23 01:05 Lymph # (Auto) 3.4 10^3/uL (0.8-4.8) 03/20/23 01:05 [place] # (Auto) 1.1 10^3/uL (0.2-0.9) H 03/20/23 01:05 Eos # (Auto) 0.1 10^3/uL (0.0-0.8) 03/20/23 01:05 Baso # (Auto) 0.0 10^3/uL (0.0-0.1) 03/20/23 01:05 Nucleated RBC % (auto) 0 % 03/20/23 01:05 Nucleated RBCs # 0.0 /100WBC 03/20/23 01:05 Sodium 139 mmol/L (136-145) 03/20/23 01:05 Potassium 3.5 mmol/L (3.5-5.1) 03/20/23 01:05 Chloride 105 mmol/L (98-107) 03/20/23 01:05 Carbon Dioxide 25 mmol/L (22-29) 03/20/23 01:05 Anion Gap 12.5 (5-19) 03/20/23 01:05 BUN 9 mg/dL (6-20) 03/20/23 01:05 Creatinine 1.0 mg/dL (0.7-1.2) 03/20/23 01:05 GFR Calculation 78.5 mL/min (90-130) L 03/20/23 01:05 Glucose 118 mg/dL (65-115) H 03/20/23 01:05 Calculated Osmolality 288 mOsm/kg (285-295) 03/20/23 01:05 Calcium 9.0 mg/dL (8.5-10.5) 03/20/23 01:05 Total Bilirubin 0.4 mg/dL (0.15-1.2) 03/20/23 01:05 AST 16 U/L (0-40) 03/20/23 01:05 ALT 13 U/L (0-41) 03/20/23 01:05 Alkaline Phosphatase 89 U/L (40-130) 03/20/23 01:05 Total Protein 6.9 g/dL (6.6-8.7) 03/20/23 01:05 Albumin 3.9 g/dL (3.5-5.2) 03/20/23 01:05 Globulin 3.0 g/dL (1.3-4.6) 03/20/23 01:05 TSH 0.99 uIU/mL (0.27-4.20) 03/20/23 01:05 Salicylates < 0.3 mg/dL (3-10) L 03/20/23 01:05 Acetaminophen < 5.0 ug/mL (10-30) L 03/20/23 01:05 Ethyl Alcohol < 10 mg/dL (0-10) 03/20/23 01:05 SARS-CoV-2 Ag (Rapid) negative (Negative) 03/20/23 01:35 Discharge Plan Discharge Patient Disposition: Home Clinical Impression: Depression Condition: Stable Prescriptions: No Action levofloxacin 750 mg tablet 750 mg PO DAILY 7 Days Qty: 7 0RF Rx Instructions: for 7 days (rx filled 03/15/23) albuterol sulfate 90 mcg/actuation HFA aerosol inhaler 2 inh inhalation Q4H PRN (Reason: shortness of breath or wheezing) Qty: 6.7 0RF acetaminophen [Tylenol Extra Strength] 500 mg tablet 1,000 mg PO QID PRN (Reason: Pain) omega 4-zdf-mpk-fish oil [Fish Oil] 1,000 mg (120 mg-180 mg) capsule 1 cap PO BID Flonase 50 mcg/actuation Wickes,Suspension 2 spray INTRANASAL DAILY PRN (Reason: Allergy Symptoms) Rx Instructions: administer into each nostril Discharge Orders: Discharge ED (Routine); Ordered 03/20/23 Ordered By: Ervin Pelayo Referrals: Temitope Lemons MD [Primary Care Provider] - Discharge Diet: Advance as tolerated Discharge Activity: Resume usual activity Patient Instructions: Depression (ED) Coding Level of Care Code ED Combatant Diver Officer for Chg Fwd Documented by User: Ervin Pelayo MD 03/20/23 18:31 HPI - Psych General: Chief Complaint: Psychiatric Symptoms Stated Complaint: 96 HOUR HOLD Time Seen by Provider: 03/20/23 00:58 PFSH ED PFSH: Surgical History History of cholecystectomy History of tonsillectomy and adenoidectomy Hx of inguinal hernia repair 01/31/23 LAP REPAIR OF LEFT INGUINAL HERNIA WITH MESH Family History Mother Cancer Diabetes Heart disease Father Alzheimer disease Diabetes Cancer Social History Smoking and tobacco status: current every day smoker cigarettes Alcohol intake: never Substance/Drug Use: never Course Vital Signs: Vital signs: Vital Signs Temperature 98.0 F 03/20/23 01:01 Pulse Rate 66 03/20/23 14:00 Respiratory Rate 18 03/20/23 01:16 Blood Pressure 120/82 03/20/23 14:00 Pulse Oximetry 99 03/20/23 14:00 Oxygen Delivery Me thod Room Air 03/20/23 01:16 MDM - Psych Medical Decision Making 52-year-old gentleman presenting to the emergency department for court ordered 96-hour hold. Patient is calm and cooperative. No apparent evidence of self-harm and patient denies self-harm actions. Labs demonstrate no significant hematologic or metabolic abnormality. TSH is normal. Urine drug screen is [pending] and toxic ingestions are negative. Urinalysis is [pending]. COVID negative. Given physical exam and clinical history provided there is no indication for imaging at this time. Based on ED evaluation at this point there is no obvious condition that would preclude the patient from inpatient management of psychiatric concerns/symptoms. There is significant discrepancy between patient provided history and family submitted affidavit. As such we will plan to have psychiatry service evaluate the patient in the morning for further recommendations. Handed off to morning ED physician pending psychiatry service assessment and recommendations for disposition. Patient evaluated by Dr. Lemons who does not believe the patient suicidal homicidal did rescind his 96 and we will discharge him home Lab Data 03/20/23 01:05 03/20/23 01:05 Laboratory Results WBC 13.3 10^3/uL (4.0-10.0) H 03/20/23 01:05 RBC 4.84 10^6/uL (4.1-5.3) 03/20/23 01:05 Hgb 15.2 g/dL (11.7-16.6) 03/20/23 01:05 Hct 44.6 % (42.0-52.0) 03/20/23 01:05 MCV 92.1 fl (80-94) 03/20/23 01:05 MCH 31.4 pg (28.0-34.0) 03/20/23 01:05 MCHC 34.1 g/dL (30.0-36.0) 03/20/23 01:05 RDW 13.8 % (12.1-15.1) 03/20/23 01:05 Plt Count 249 10^3/cmm (130-400) 03/20/23 01:05 MPV 9.7 fL (7.4-10.4) 03/20/23 01:05 Neut % (Auto) 64.9 % 03/20/23 01:05 Lymph % (Auto) 25.7 % 03/20/23 01:05 Wal[place] % (Auto) 7.9 % 03/20/23 01:05 Eos % (Auto) 1.0 % 03/20/23 01:05 Baso % (Auto) 0.2 % 03/20/23 01:05 Neut # (Auto) 8.65 10^3/uL (1.8-7.7) H 03/20/23 01:05 Lymph # (Auto) 3.4 10^3/uL (0.8-4.8) 03/20/23 01:05 [place] # (Auto) 1.1 10^3/uL (0.2-0.9) H 03/20/23 01:05 Eos # (Auto) 0.1 10^3/uL (0.0-0.8) 03/20/23 01:05 Baso # (Auto) 0.0 10^3/uL (0.0-0.1) 03/20/23 01:05 Nucleated RBC % (auto) 0 % 03/20/23 01:05 Nucleated RBCs # 0.0 /100WBC 03/20/23 01:05 Sodium 139 mmol/L (136-145) 03/20/23 01:05 Potassium 3.5 mmol/L (3.5-5.1) 03/20/23 01:05 Chloride 105 mmol/L (98-107) 03/20/23 01:05 Carbon Dioxide 25 mmol/L (22-29) 03/20/23 01:05 Anion Gap 12.5 (5-19) 03/20/23 01:05 BUN 9 mg/dL (6-20) 03/20/23 01:05 Creatinine 1.0 mg/dL (0.7-1.2) 03/20/23 01:05 GFR Calculation 78.5 mL/min (90-130) L 03/20/23 01:05 Glucose 118 mg/dL (65-115) H 03/20/23 01:05 Calculated Osmolality 288 mOsm/kg (285-295) 03/20/23 01:05 Calcium 9.0 mg/dL (8.5-10.5) 03/20/23 01:05 Total Bilirubin 0.4 mg/dL (0.15-1.2) 03/20/23 01:05 AST 16 U/L (0-40) 03/20/23 01:05 ALT 13 U/L (0-41) 03/20/23 01:05 Alkaline Phosphatase 89 U/L (40-130) 03/20/23 01:05 Total Protein 6.9 g/dL (6.6-8.7) 03/20/23 01:05 Albumin 3.9 g/dL (3.5-5.2) 03/20/23 01:05 Globulin 3.0 g/dL (1.3-4.6) 03/20/23 01:05 TSH 0.99 uIU/mL (0.27-4.20) 03/20/23 01:05 Salicylates < 0.3 mg/dL (3-10) L 03/20/23 01:05 Acetaminophen < 5.0 ug/mL (10-30) L 03/20/23 01:05 Ethyl Alcohol < 10 mg/dL (0-10) 03/20/23 01:05 SARS-CoV-2 Ag (Rapid) negative (Negative) 03/20/23 01:35 Discharge Plan Discharge Patient Disposition: Home Clinical Impression: Depression Condition: Stable Prescriptions: No Action levofloxacin 750 mg tablet 750 mg PO DAILY 7 Days Qty: 7 0RF Rx Instructions: for 7 days (rx filled 03/15/23) albuterol sulfate 90 mcg/actuation HFA aerosol inhaler 2 inh inhalation Q4H PRN (Reason: shortness of breath or wheezing) Qty: 6.7 0RF acetaminophen [Tylenol Extra Strength] 500 mg tablet 1,000 mg PO QID PRN (Reason: Pain) omega 7-uck-ryz-fish oil [Fish Oil] 1,000 mg (120 mg-180 mg) capsule 1 cap PO BID Flonase 50 mcg/actuation Wickes,Suspension 2 spray INTRANASAL DAILY PRN (Reason: Allergy Symptoms) Rx Instructions: administer into each nostril Discharge Orders: Discharge ED (Routine); Ordered 03/20/23 Ordered By: Ervin Pelayo Referrals: Temitope Lemons MD [Primary Care Provider] - Discharge Diet: Advance as tolerated Discharge Activity: Resume usual activity Patient Instructions: Depression (ED) Coding Level of Care Code ED Combatant Diver Officer for Anmol Dong
[2023-03-20 01:16] VITALS: RESP 18
[2023-03-20 01:19] LABS: Basophils % 0.2 %; Eosinophils # 0.1 10^3/uL (0.0-0.8); Hematocrit 44.6 % (42.0-52.0); Hemoglobin 15.2 g/dL (11.7-16.6); Lymphocytes # 3.4 10^3/uL (0.8-4.8); Lymphocytes % 25.7 %; Mean Corpuscular HGB Conc 34.1 g/dL (30.0-36.0); Mean Corpuscular Hemoglobin 31.4 pg (28.0-34.0); Mean Corpuscular Volume 92.1 fl (80-94); Mean Platelet Volume 9.7 fL (7.4-10.4); Monocytes # 1.1 10^3/uL (0.2-0.9); Monocytes % 7.9 %; Neutrophils # 8.65 10^3/uL (1.8-7.7); Neutrophils % 64.9 %; Nucleated Red Blood Cells % 0 %; Platelet Count 249 10^3/cmm (130-400); Red Blood Count 4.84 10^6/uL (4.1-5.3); Red Cell Distribution Width 13.8 % (12.1-15.1); White Blood Count 13.3 10^3/uL (4.0-10.0)
--- NOTE | 2023-03-20 01:33 | ECG_ITS ---
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 Measurements Intervals [place] Rate: 69 P: 32 AR: 212 QRS: 13 QRSD: 124 T: 35 QT: 375 QTc: 403 Interpretive Statements SINUS RHYTHM WITH FIRST DEGREE AV BLOCK POSSIBLE RIGHT VENTRICULAR CONDUCTION DELAY [RSR (QR) IN V1/V2] Compared to ECG 01/17/2022 22:02:00 First degree AV block now present Incomplete right bundle-branch block no longer present ST (T wave) deviation no longer present Electronically Signed On 03-21-2023 10:05:34 CDT by Maribel Moffett M.D. [email or web address]
[2023-03-20 01:39] LABS: Alanine Aminotransferase 13 U/L (0-41); Albumin Level 3.9 g/dL (3.5-5.2); Alkaline Phosphatase 89 U/L (40-130); Anion Gap 12.5 (5-19); Aspartate Amino Transferase 16 U/L (0-40); Blood Urea Nitrogen 9 mg/dL (6-20); Carbon Dioxide 25 mmol/L (22-29); Chloride 105 mmol/L (98-107); Glomerular Filtration Rate 78.5 mL/min (90-130); Glucose 118 mg/dL (65-115); Osmolality Calculated 288 mOsm/kg (285-295); Potassium 3.5 mmol/L (3.5-5.1); Sodium 139 mmol/L (136-145); Thyroid Stimulating Hormone 0.99 uIU/mL (0.27-4.20); Total Bilirubin 0.4 mg/dL (0.15-1.2); Total Protein 6.9 g/dL (6.6-8.7)
[2023-03-20 01:43] LABS: Acetaminophen < 5.0 ug/mL (10-30); Alcohol Level < 10 mg/dL (0-10); Salicylate < 0.3 mg/dL (3-10)
[2023-03-20 01:53] LABS: SARS Covid-2 Antigen negative (Negative)
[2023-03-20] MEDS: fluticasone nasal spray 16gm Btl 2 SPRAY INTRANASAL (11:12)
[2023-03-20] MEDS: levoFLOXacin 750 mg Tablet PO (11:13)
[2023-03-20 14:00] VITALS: BP 120/82; PULSE 66; O2SAT 99
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
== END 2023-03-20 19:01 | disposition home or self-care (01) ==
PROVIDERS: Emergency Medicine; Emergency Provider Emergency Medicine; PCP Family Medicine
DX: F32.A Depression, unspecified (principal); I44.0 Atrioventricular block, first degree; F17.210 Nicotine dependence, cigarettes, uncomplicated
CPT/HCPCS: 80053; 80307; 84443; 85025; 87426; 93005; 99284

== ENCOUNTER → 2023-11-20 13:34 | Outpatient (BNVA) | payer BC, SELFPAY | PROVIDERS: PCP Family Medicine; Referring Provider Emergency Medicine; Visit Provider Internal Medicine | DX: R07.9 Chest pain, unspecified (principal) | CPT/HCPCS: 93005 ==

== ENCOUNTER 2023-11-27 14:12 | Outpatient (CLI) | payer BC, SELFPAY ==
--- NOTE | 2023-11-27 15:15 | USCV_ITS ---
Edson Jurado Age: 53 Gender: M : 1970 Exam Date: 11/27/2023 14:49 Ordering Phys: Dusty Fuentes M.D ([email or web address]) Technologist: CT Exam Location: [facility] [place] Indication: cp BP: 120 / 70 HR: Rhythm: Sinus Technical Quality: Adequate MEASUREMENTS (Male / Female) Normal Values 2D ECHO LVOT Diameter 2.0 cm LV Ejection Fraction MOD 2C 58.7 % LV Ejection Fraction 2C AL 60.3 % LA Diameter 3.1 cm RA Systolic Volume 4C AL 47.6 ml RA Systolic Volume 4C MOD 45.4 ml Aorta at Sinotubular Diameter 3.1 cm IVC Diameter 1.6 cm M-MODE LA Ao Ratio MM 1.0 AV Cusp Separation MM 2.3 cm DOPPLER AV Peak Velocity 110.0 cm/s LVOT Peak Velocity 83.0 cm/s AV Area Cont Eq vti 2.8 cm squared AV Area Cont Eq pk 2.4 cm squared MV Peak Velocity 79.0 cm/s MV Area PHT 3.0 cm squared Mitral E to A Ratio 1.4 TR Peak Velocity 96.0 cm/s TR Peak Gradient 3.7 mmHg TV Peak E Velocity 79.0 cm/s Right Atrial Pressure 3.0 mmHg Pulmonary Artery Systolic Pressu 6.7 mmHg PV Peak Velocity 111.0 cm/s FINDINGS Left Ventricle Left ventricle is normal size. LV systolic function is normal with EF of 50 to 55%. No regional wall motion abnormalities are seen. Right Ventricle Normal in size and function Right Atrium Normal in size Left Atrium Normal in size Mitral Valve Structurally normal mitral valve. Trace mitral regurgitation. Aortic Valve Structurally normal aortic valve. No significant stenosis or regurgitation. Tricuspid Valve Mild tricuspid regurgitation. Insufficient TR jet to calculate RVSP. Pulmonic Valve Trace pulmonic regurgitation. Pericardium Normal Aorta Ascending aorta is dilated with diameter of 4.14 cm. IVC Appears to be normal CONCLUSIONS LV systolic function is normal with EF 50 to 55%. Trace mitral regurgitation. Mild tricuspid regurgitation Trace pulmonic regurgitation Ascending aorta is dilated with diameter of 4.14 cm. No comparison studies are available. Dusty Fuentes MD (Electronically Signed) Final Date: 12 December 2023 11:10 S
== END 2023-11-27 14:13 | disposition home or self-care (01) ==
LOC: RAD 14:13
PROVIDERS: PCP Family Medicine; Visit Provider Internal Medicine
DX: I07.1 Rheumatic tricuspid insufficiency (principal); I77.810 Thoracic aortic ectasia; R07.9 Chest pain, unspecified
CPT/HCPCS: 93306

== ENCOUNTER 2024-01-06 07:28 | Outpatient (CLI) | payer BC, SELFPAY ==
--- NOTE | 2024-01-06 08:00 | CT_ITS ---
WS: [id number] CTA THORACIC TECHNIQUE: Contrast enhanced CTA of the thoracic aorta with coronal and sagittal reformatted images a nd maximum intensity projection (MIP) images. CLINICAL INFORMATION: dilated ascending aorta COMPARISON: None. DLP: 698.[address] scans at [facility] use at least one of these dose optimization techniques: automated e xposure control; mA and/or kV adjustment per patient size (includes targeted exams where dose is matc hed to clinical indication); or iterative reconstruction. FINDINGS: Proximal main pulmonary arteries are normal. Ascending thoracic aorta measures approximately 3.5 cm in the mid ascending aorta. Ascending aorta at the sinuses of Valsalva measures approximately 4.2 cm. Normal caliber descending thoracic aorta. Lungs are well aerated. Slight bibasal atelectasis. Mild chronic emphysematous changes. Calcified gra nuloma LEFT lower lobe. No mediastinal or hilar lymphadenopathy. No axillary lymphadenopathy. Adrenal glands are normal. Pneumobilia likely incidental partially visualized. Small esophageal herni a. Normal thoracic spine. Lipoma RIGHT axilla measuring 9.6 x 5.1 cm IMPRESSION: 1. Mid ascending thoracic aorta measures 3.5 cm. Aorta at the sinuses of Valsalva measures 4.2 cm. 2. Normal caliber descending thoracic aorta. 3. Mild chronic emphysematous changes. Slight bibasilar atelectasis 4. Pneumobilia partially visualized in the liver likely incidental and benign. Recommend correlation with history of biliary stent or biliary function studies. This could be further evaluated with CT a bdomen pelvis.
[2024-01-06] MEDS: iohexol 350 mg/mL 500 mL Btl (per mL) IV (08:40)
== END 2024-01-06 07:29 | disposition home or self-care (01) ==
LOC: RAD 07:28
PROVIDERS: PCP Family Medicine; Visit Provider Internal Medicine
DX: I77.810 Thoracic aortic ectasia (principal)
CPT/HCPCS: 71275; Q9967

== ENCOUNTER 2024-07-01 09:53 | Day surgery (SDC) | payer BC, SELFPAY ==
[2024-07-01 10:02] VITALS: BP 111/71; PULSE 66; RESP 18; TEMP 36.3; O2SAT 93
[2024-07-01 10:10] VITALS: BMI 32.2
[2024-07-01] MEDS: sodium chloride 0.9% 1,000 ML 30 ML IV (10:22)
--- NOTE | 2024-07-01 10:34 | ANES.PREANE2 ---
Pre-Anesthetic Assessment Height/Weight: Height 1.73 m Weight 96.162 kg Temp Pulse Resp BP Pulse Ox O2 Del Method 97.4 F L 66 18 111/71 93 Room Air 07/01/24 10:02 07/01/24 10:02 07/01/24 10:02 07/01/24 10:02 07/01/24 10:02 07/01/24 10:02 Operation Date: 07/01/24 11:30 Proposed Procedures p EGD - 87084, 56789 , K92.2, R10.13(Not Applicable) - DO julian Lane Colonoscopy(Not Applicable) - Orlando Aguilera DO Familial anesthetic complications: None Was Beta Terry taken within 24 hours: N/A Was Clonidine taken within 24 hours: N/A Last intake: Intake Last Liquid Date 06/30/24 Last Liquid Time 22:00 Last Solid Date 06/29/24 Last Solid Time 21:30 Social No tobacco Exam alert, oriented x 3, clear to auscultation bilaterally and regular rate & rhythm Airway Mallampati: Class I Dentition: false Pulmonary Chronic Obstructive Pulmonary Disease GI Gastroesophageal Reflux Disease Anesthetic Plan ASA status: 2 Anesthesia: MAC Risk of > 500 ml blood loss (7ml/kg in children): No Medications/Allergies Home Medications Medication Instructions Recorded Confirmed Last Taken Type omega 3-urq-xff-fish oil 1,000 mg 1 cap PO BID 01/15/23 07/01/24 06/17/24 History (120 mg-180 mg) capsule (Fish Oil) albuterol sulfate 90 mcg/actuation 2 puff inhalation Q6H 90 days #8.5 11/20/23 07/01/24 06/23/24 Rx aerosol inhaler grams fluticasone propionate 50 2 spray intranasal DAILY PRN 11/20/23 07/01/24 06/23/24 Rx mcg/actuation nasal Allergy Symptoms #16 grams spray,suspension pantoprazole 40 mg tablet,delayed 40 mg PO BID 6 weeks #84 tabs 05/29/24 07/01/24 06/29/24 Rx release (Protonix) sucralfate 100 mg/mL oral 10 ml PO BID 30 days #840 mL 05/29/24 07/01/24 06/29/24 Rx suspension Allergies Allergy/AdvReac Type Severity Reaction Status Date / Time hydrocodone [From Vicodin] Allergy ADR-Headach Verified 05/29/24 07:52 e Current Medications Generic Name Dose Route Start Last Admin Trade Name Freq PRN Reason Stop Dose Admin Sodium Chloride 1,000 mls @ 30 mls/hr 07/01/24 10:00 07/01/24 10:22 Sodium Chloride 0.9% IV 07/02/24 09:59 30 mls/hr .Q24H BRITTANY Administration PFSH Anesthesia Medical History Abnormal EKG Surgical History Hx of inguinal hernia repair 01/31/23 LAP REPAIR OF LEFT INGUINAL HERNIA WITH MESH History of tonsillectomy and adenoidectomy History of cholecystectomy Family History Mother Cancer Diabetes Heart disease Father Alzheimer disease Diabetes Cancer Social History Smoking and tobacco/nicotine status: unknown if used tobacco/nicotine Alcohol intake: never Substance/Drug Use: never Data Anesthesia Cardiac Studies: Echocardiogram 11/27/23
--- NOTE | 2024-07-01 11:15 | W.PM.OPSUD ---
Surgery/Procedure H&P Update DATE OF PROCEDURE: July 01, 2024 DATE H&P PERFORMED: 05/29/24 H&P UPDATE INFORMATION: I have reviewed H&P completed within last 30 days, I have examined patient prior to procedure and No changes to prior documentation PLANNED PROCEDURE: Operation Date: 07/01/24 11:30 Proposed Procedures p EGD - 54971, 59576 , K92.2, R10.13(Not Applicable) - DO julian Lane Colonoscopy(Not Applicable) - Orlando Aguilera DO
[2024-07-01 12:03] VITALS: BP 114/87; PULSE 63; RESP 18; TEMP 36.2; O2SAT 90
[2024-07-01 12:13] VITALS: BP 97/58; PULSE 62; RESP 18; O2SAT 90
[2024-07-01 12:23] VITALS: BP 139/94; PULSE 57; RESP 18; O2SAT 92
[2024-07-01 12:32] VITALS: BP 134/82; PULSE 54; RESP 18; O2SAT 92
--- NOTE | 2024-07-01 12:55 | ANE.PACU2 ---
Inpatient post-anesthesia follow up: Airway intact: Yes Vital signs: Temperature 97.2 F Pulse Rate 54 Respiratory Rate 18 Blood Pressure 134/82 Pulse Oximetry 92 Oxygen Delivery Me thod Room Air Oxygen Flow Rate Fraction of Inspir ed Oxygen Hydration adequate: Yes Nausea and vomiting: No Pain level: 1 Mental status: Baseline
== END 2024-07-01 12:59 | disposition home or self-care (01) ==
PROVIDERS: PCP Family Medicine; Visit Provider Surgery
PROC: 0DJ08ZZ Inspection of Upper Intestinal Tract, Via Natural or Artificial Opening Endoscopic (ICD-10-PCS; CPT 43235; principal; 2024-07-01 11:30)
PROC: 0DJD8ZZ Inspection of Lower Intestinal Tract, Via Natural or Artificial Opening Endoscopic (ICD-10-PCS; CPT 45378; 2024-07-01 11:30)
DX: R10.13 Epigastric pain (principal); K64.8 Other hemorrhoids; K57.30 Diverticulosis of large intestine without perforation or abscess without bleeding; D12.5 Benign neoplasm of sigmoid colon; K29.80 Duodenitis without bleeding; J44.9 Chronic obstructive pulmonary disease, unspecified
CPT/HCPCS: 43239; 45385; 88305; J2704; J7030

== ENCOUNTER 2024-08-25 05:33 | Day surgery (SDC) | payer BC, SELFPAY ==
[2024-08-25] VITALS (13 sets, daily range): BP systolic 101–127; BP diastolic 58–89; PULSE 61–72; RESP 16–18; TEMP 36.1–37.1; O2SAT 92–99; BMI 31.6
[2024-08-25] MEDS: sodium chloride 0.9% 1,000 ML 30 ML IV (06:13)
--- NOTE | 2024-08-25 06:43 | ANES.PREANE2 ---
Pre-Anesthetic Assessment Height/Weight: Height 5 ft 8 in Weight 208 lb Temp Pulse Resp BP Pulse Ox O2 Del Method 98.8 F 67 16 127/81 96 Room Air 08/25/24 06:04 08/25/24 06:04 08/25/24 06:04 08/25/24 06:04 08/25/24 06:04 08/25/24 06:05 Preop Diagnosis: Hemorrhoids Operation Date: 08/25/24 07:00 Proposed Procedures p Hemorrhoidectomy 00998, 83586, K64.1(Not Applicable) - Orlando Aguilera, DO Was Beta Terry taken within 24 hours: N/A Was Clonidine taken within 24 hours: N/A Last intake: Intake Last Liquid Date 08/24/24 Last Liquid Time 23:30 Last Solid Date 08/24/24 Last Solid Time 20:00 Social Tobacco and No alcohol Exam alert, oriented x 3, clear to auscultation bilaterally and regular rate & rhythm Airway Submandibular: within normal limits Cervical ROM: within normal limits Mallampati: Class II Dentition: false Comments: Comments: Upper dentures, no bottom teeth Anesthetic Plan ASA status: 2 Anesthesia: General Other: No prior issues with anesthesia NPO since yesterday Current smoker, occasional inhaler use Denies any cardiac issues GERD documented but patient denies any symptoms METs greater than 4 Plan for general anesthesia Medications/Allergies Home Medications Medication Instructions Recorded Confirmed Last Taken Type omega 7-gba-jvk-fish oil 1,000 mg 1 cap PO BID 01/15/23 08/24/24 08/23/24 History (120 mg-180 mg) capsule (Fish Oil) albuterol sulfate 90 mcg/actuation 2 puff inhalation Q6H 90 days #8.5 11/20/23 08/24/24 06/23/24 Rx aerosol inhaler grams fluticasone propionate 50 2 spray intranasal DAILY PRN 11/20/23 08/24/24 06/23/24 Rx mcg/actuation nasal Allergy Symptoms #16 grams spray,suspension pantoprazole 40 mg tablet,delayed 40 mg PO BID 6 weeks #84 tabs 05/29/24 08/24/24 08/23/24 Rx release (Protonix) sucralfate 100 mg/mL oral 10 ml PO BID 30 days #840 mL 05/29/24 08/24/24 08/23/24 Rx suspension polyethylene glycol 3350 17 4 g PO DAILY 08/24/24 08/24/24 08/24/24 History gram/dose oral powder (Miralax) Allergies Allergy/AdvReac Type Severity Reaction Status Date / Time hydrocodone [From Vicodin] Allergy ADR-Headach Verified 07/20/24 10:17 e Current Medications Generic Name Dose Route Start Last Admin Trade Name Freq PRN Reason Stop Dose Admin Sodium Chloride 1,000 mls @ 30 mls/hr 08/25/24 06:00 08/25/24 06:13 Sodium Chloride 0.9% IV 08/26/24 05:59 30 mls/hr .Q24H BRITTANY Administration PFSH Anesthesia Medical History (Updated 07/20/24 @ 10:31 by Orlando Aguilera DO) Tubular adenoma of colon Abnormal EKG Surgical History Hx of inguinal hernia repair 01/31/23 LAP REPAIR OF LEFT INGUINAL HERNIA WITH MESH History of tonsillectomy and adenoidectomy History of cholecystectomy Family History Mother Cancer Diabetes Heart disease Father Alzheimer disease Diabetes Cancer Social History Smoking and tobacco/nicotine status: current every day tobacco/nicotine user cigarettes Alcohol intake: never Substance/Drug Use: never Data Anesthesia Cardiac Studies: Echocardiogram 11/27/23
[2024-08-25] MEDS: ceFAZolin 2,000 mg SDV 2000 MG IVP (07:00)
--- NOTE | 2024-08-25 07:00 | PM.HP ---
Providers/Chief Complaint Primary Care Provider: Temitope Lemons MD Chief Complaint: K64.1 History of Present Illness Edson Jurado is a 54 year old male Review of Systems General: Reports: 10 or more systems reviewed and unremarkable except in HPI and below Medications/Allergies Home Medications Medication Instructions Recorded Confirmed Last Taken Type omega 1-ckl-poi-fish oil 1,000 mg 1 cap PO BID 01/15/23 08/24/24 08/23/24 History (120 mg-180 mg) capsule (Fish Oil) albuterol sulfate 90 mcg/actuation 2 puff inhalation Q6H 90 days #8.5 11/20/23 08/24/24 06/23/24 Rx aerosol inhaler grams fluticasone propionate 50 2 spray intranasal DAILY PRN 11/20/23 08/24/24 06/23/24 Rx mcg/actuation nasal Allergy Symptoms #16 grams spray,suspension pantoprazole 40 mg tablet,delayed 40 mg PO BID 6 weeks #84 tabs 05/29/24 08/24/24 08/23/24 Rx release (Protonix) sucralfate 100 mg/mL oral 10 ml PO BID 30 days #840 mL 05/29/24 08/24/24 08/23/24 Rx suspension polyethylene glycol 3350 17 4 g PO DAILY 08/24/24 08/24/24 08/24/24 History gram/dose oral powder (Miralax) Allergies Allergy/AdvReac Type Severity Reaction Status Date / Time hydrocodone [From Vicodin] Allergy ADR-Headach Verified 07/20/24 10:17 e PFSH Acute PFSH: Medical History (Updated 07/20/24 @ 10:31 by Orlando Aguilera DO) Tubular adenoma of colon Abnormal EKG Surgical History Hx of inguinal hernia repair 01/31/23 LAP REPAIR OF LEFT INGUINAL HERNIA WITH MESH History of tonsillectomy and adenoidectomy History of cholecystectomy Family History Mother Cancer Diabetes Heart disease Father Alzheimer disease Diabetes Cancer Social History Smoking and tobacco/nicotine status: current every day tobacco/nicotine user cigarettes Alcohol intake: never Substance/Drug Use: never Vitals/I&O/Wt Last Vital Signs Temp 98.8 F 08/25/24 06:04 Pulse 67 08/25/24 06:04 Resp 16 08/25/24 06:04 BP 127/81 08/25/24 06:04 Pulse Ox 96 08/25/24 06:04 O2 Del Method Room Air 08/25/24 06:05 Weight last 48 hrs Weight 208 lb A&P Assessment and plan (1) Grade II internal hemorrhoids: Plan Hemorrhoidectomy Attestations Medical Necessity Statement*: home Coding Level of Care Code Acute Code for Chg Fwd Diagnoses Grade II internal hemorrhoids K64.1
[2024-08-25] MEDS: BUPivacaine liposome 13.3 mg/mL SDV 20 mL 266 MG INJECTION (07:47)
[2024-08-25] MEDS: BUPivacaine 0.5% INJ 10 mL INJECTION (07:47)
[2024-08-25] MEDS: thrombin 5,000 unit SDV 5000 UNIT (07:55)
--- NOTE | 2024-08-25 07:56 | P.OP_ITS ---
Operative Report Date of procedure: August 25, 2024 Pre-op diagnosis: Grade 4 internal hemorrhoids Post-op diagnosis: same Procedure done: Hemorrhoidectomy of all 3 hemorrhoidal pillars Implants: Exparel and thrombin-soaked Gelfoam Specimens removed/disposition: Hemorrhoidal pillars Surgeon: Orlando Aguilera DO Anesthesia: General and Local Estimated blood loss (mL): 5 Complications: None apparent Brief History: This is a very pleasant 54-year-old gentleman who had grade 4 internal hemorrhoids. He desired hemorrhoidectomy. Risks and benefits, including recurrence bleeding infection and damage to anal sphincter causing possible incontinence of stool and/or flatus, were explained and documented. Procedure: Patient was well in the operative room and general endotracheal ovation was achieved by the department anesthesia. He was then placed into the prone j ackknife position. The anus was inspected prepped and draped in usual sterile fashion. A timeout was performed. All present were in agreement. Retractor was used to examine the anus and he had sizable hemorrhoids at all 3 pillars. The largest pillar was the right posterior. All 3 pillars were taken in the same manner. The exterior most edge of the hemorrhoid was slightly ligated with electrocautery. The harmonic scalpel was then used to excise all 3 hemorrhoidal pillars. There was minimal bleeding. Thrombin-soaked Gelfoam was then placed into the anus. Sterile bandage was applied. Patient tolerated procedure well.
--- NOTE | 2024-08-25 09:45 | ANE.PACU2 ---
Inpatient post-anesthesia follow up: Airway intact: Yes Vital signs: Temperature 97.0 F Pulse Rate 66 Respiratory Rate 18 Blood Pressure 111/64 Pulse Oximetry 94 Oxygen Delivery Me thod Room Air Oxygen Flow Rate 10 Fraction of Inspir ed Oxygen Hydration adequate: Yes Nausea and vomiting: No Pain level: 1 Mental status: Baseline
== END 2024-08-25 09:40 | disposition home or self-care (01) ==
PROVIDERS: PCP Family Medicine; Visit Provider Surgery
PROC: (CPT 46260; principal; 2024-08-25 07:00)
DX: K64.8 Other hemorrhoids (principal); F17.210 Nicotine dependence, cigarettes, uncomplicated
CPT/HCPCS: 46260; 88304; C9290; J0690; J1100; J1171; J2250; J2405; J2704; J3010; J3490; J7030

== ENCOUNTER 2024-12-14 06:01 | Outpatient (CLI) | payer BC, SELFPAY ==
--- NOTE | 2024-12-14 06:15 | USCV_ITS ---
Edson Jurado Age: 54 Gender: M : 1970 Exam Date: 12/14/2024 06:20 Ordering Phys: Dusty Fuentes M.D ([email or web address]) Technologist: [place] [facility] [place]: hx of mi BP: / HR: 78 Rhythm: Sinus Technical Quality: Adequate MEASUREMENTS (Male / Female) Normal Values 2D ECHO LV Diastolic Diameter PLAX 4.6 cm 4.2 - 5.9 / 3.9 - 5.3 cm IVS Diastolic Thickness 1.3 cm 0.6 - 1.0 / 0.6 - 0.9 cm IVS Systolic Thickness 1.8 cm LVPW Diastolic Thickness 1.4 cm 0.6 - 1.0 / 0.6 - 0.9 cm LVPW Systolic Thickness 1.7 cm LVOT Diameter 2.1 cm LV Ejection Fraction 2D Teich 71.4 % LV Ejection Fraction MOD 4C 61.3 % LV Ejection Fraction MOD 2C 64.1 % LV Ejection Fraction 2C AL 63.5 % LA Diameter 3.1 cm RA Systolic Volume 4C AL 48.6 ml RA Systolic Volume 4C MOD 44.8 ml Aorta at Sinotubular Diameter 3.4 cm IVC Diameter 1.5 cm M-MODE LA Ao Ratio MM 1.3 AV Cusp Separation MM 2.5 cm DOPPLER AV Peak Velocity 113.0 cm/s LVOT Peak Velocity 79.0 cm/s AV Area Cont Eq vti 2.2 cm squared AV Area Cont Eq pk 2.4 cm squared MV Peak Velocity 92.0 cm/s MV Area PHT 3.6 cm squared Mitral E to A Ratio 1.4 TV Peak Velocity 143.5 cm/s TR Peak Velocity 145.0 cm/s TR Peak Gradient 8.4 mmHg TV Peak E Velocity 102.0 cm/s PV Peak Velocity 98.0 cm/s FINDINGS Left Ventricle Left ventricle is normal in size. LV systolic function is normal with EF of 55-60%. No regional wall motion abnormalities are seen. Right Ventricle Normal in size and function Right Atrium Normal in size Left Atrium Normal in size Mitral Valve Structurally normal mitral valve. Mild mitral regurgitation. Aortic Valve Structurally normal aortic valve. No significant stenosis or regurgitation. Tricuspid Valve Mild tricuspid regurgitation. Insufficient TR jet to calculate RVSP Pulmonic Valve Not well visualized Pericardium Normal Aorta Normal in size IVC Appears to be normal CONCLUSIONS LV systolic function is normal with EF of 55-60% Mild mitral regurgitation Mild tricuspid regurgitation Dusty Fuentes MD (Electronically Signed) Final Date: 17 December 2024 11:19 S
== END 2024-12-14 06:02 | disposition home or self-care (01) ==
PROVIDERS: PCP Family Medicine; Visit Provider Internal Medicine
DX: R07.9 Chest pain, unspecified (principal); R06.02 Shortness of breath; I34.0 Nonrheumatic mitral (valve) insufficiency; I07.1 Rheumatic tricuspid insufficiency
CPT/HCPCS: 93306

== ENCOUNTER → 2025-04-19 14:12 | Outpatient (BNVA) | payer BC, SELFPAY | PROVIDERS: PCP Family Medicine; Visit Provider Family Medicine | DX: M19.042 Primary osteoarthritis, left hand (principal) | CPT/HCPCS: 73130 ==

== ENCOUNTER → 2025-06-08 08:14 | Outpatient (BNVA) | payer BC, SELFPAY | PROVIDERS: PCP Family Medicine; Visit Provider Student in an Organized Health Care Education/Training Program | DX: G56.03 Carpal tunnel syndrome, bilateral upper limbs (principal); M18.12 Unilateral primary osteoarthritis of first carpometacarpal joint, left hand | CPT/HCPCS: 73130 ==

== ENCOUNTER 2025-06-24 06:59 | Outpatient (CLI) | payer BC, SELFPAY ==
--- NOTE | 2025-06-24 07:15 | MRR_ITS ---
PROCEDURE INFORMATION: Exam: MR Left Upper Extremity Joint Without Contrast; left Wrist Exam date and time: 06/24/2025 7:14 AM Age: 55 years old Clinical indication: Finger(s); Prior surgery; Surgery date: 6+ months; Surgery type: Pin RT index finger; Left thumb pain injured 2 years ago at work. Pain is at cmc joint. ; Additional info: Left thumb basal joint subluxation, eval left thumb cmc joint TECHNIQUE: Imaging protocol: Magnetic resonance imaging of the left upper extremity without contrast. Exam focused on the wrist. COMPARISON: CR XR hand LT min 3V* [id number] 06/08/2025 8:21 AM FINDINGS: Bones/joints: No acute fracture or dislocation. 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 Mild to moderate DJD at the triscaphe joint and 1st MCP joint. Mild cystic change throughout the carpus. Lunate bone demonstrates prominent diffuse marrow edema, with a possible underlying nondisplaced/microtrabecular fracture. Can not exclude evolving lunate AVN. Scapholunate ligament: Grossly intact, although suboptimally visualized Lunotriquetral ligament: Suboptimally visualized Triangular fibrocartilage complex: Grossly intact. Flexor compartment tendons: Median nerve appears mildly edematous/enlarged with slight bowing of the flexor retinaculum at the level of the pisiform bone, and appears flattened at the level of the hamate bone; findings are suggestive of carpal tunnel syndrome. Clinically correlate and follow-up as clinically indicated. Extensor compartment tendons: Unremarkable. No tear. Soft tissues: Subtle intramuscular edema at the thenar eminence, compatible with mild inflammatory change related mechanical impingement from adjacent 1st CMC joint osteophytes. MR/MR wrist LT wo con* [id number] IMPRESSION: 1. 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 2. Lunate bone demonstrates prominent diffuse marrow edema; can not exclude a possible underlying nondisplaced/microtrabecular fracture versus evolving lunate AVN. 3. Constellation of findings that can be seen in with carpal tunnel syndrome. Clinically correlate.
== END 2025-06-24 07:00 | disposition home or self-care (01) ==
LOC: RAD 07:02
PROVIDERS: PCP Family Medicine; Visit Provider Student in an Organized Health Care Education/Training Program
DX: S63.102A Unspecified subluxation of left thumb, initial encounter (principal); M18.12 Unilateral primary osteoarthritis of first carpometacarpal joint, left hand; X58.XXXA Exposure to other specified factors, initial encounter
CPT/HCPCS: 73221

== ENCOUNTER → 2025-09-02 13:32 | Outpatient (BNVA) | payer BC, SELFPAY | PROVIDERS: PCP Family Medicine; Visit Provider Family Medicine | DX: R50.9 Fever, unspecified (principal) | CPT/HCPCS: 87400; 87426 ==